=== PATIENT | male | born 1935 | race Caucasian/White ===

== ENCOUNTER 2016-11-08 09:50 | Inpatient (IN) | payer OTHER, MEDICARE ==
[~2016-11-08] VITALS: Ht 185.4 cm; Wt 98.3 kg
[~2016-11-08 09:50] MED LIST: CILO50TA PO; FOSI20TA PO; OMEP20TA PO; VITA100021 SL; VITA100064 PO; ZOCO20TA PO
[2016-11-08 09:54] VITALS: BP 158/90; PULSE 76; RESP 18; TEMP 98.1; O2SAT 97
[2016-11-08] MEDS ORDERED: SODIUM CHLORIDE 0.9% FLUSH 10 ML FLUSH IVF PRN (10:15)
--- NOTE | 2016-11-08 10:25 | PD ---
HPI Chief Complaint: Neuro Symptoms/ Deficits Time Seen by Provider: 10:01 Travel History International Travel<30 days: No Contact w/Intl Traveler<30days: No Traveled to known affect area: No History of Present Illness HPI This is an 81-year-old male with history of previous subdural hematoma, less than one year ago, who presents today with complaints of right upper extremity weakness since 2 to 2:30 this morning. The patient states he got up at 2 or 2: 30 and noticed that his right arm he couldn't move. He states everything else worked and he went back to bed. He states when he woke up this morning to use the bathroom and get washed up, he noticed weakness in his right lower extremity. At that time that he called 911. The patient denies any headache. The patient denies any left upper left lower extremity weakness. The patient denies any blurry vision or dizziness. He denies any change in his speech. He is originally from [place] and has an accident however he states his speech is normal. There are no other complaints at the time of my examination. PFSH Past Medical History Cardiovascular Problems: Yes High Cholesterol: Yes Cerebrovascular Accident: Yes Coronary Artery Disease: Yes Diminished Hearing: No Hypertension: Yes Social History Alcohol Use: Yes Tobacco Use: Yes Substance Use: No Allergies-Medications (Allergen,Severity, Reaction): Coded Allergies: No Known Allergies (Verified , 06/19/16) Reported Meds & Prescriptions Reported Meds & Active Scripts Active Reported Flonase Nasal [place] (Fluticasone Nasal [place]) 50 Mcg/Act [place] 1 [place] EACH NARE HS Gabapentin 300 Mg Cap 300 Mg PO HS Fosinopril-Hydrochlorothiazide 10-12.5 Mg Tab 1 Tab PO DAILY Vitamin D (Cholecalciferol) 1,000 Unit Tab 1,000 Units PO DAILY Vitamin B-12 (Cyanocobalamin) 1,000 Mcg Subl 1,000 Mcg SL DAILY Zocor (Simvastatin) 20 Mg Tab 20 Mg PO HS Cilostazol 50 Mg Tab 50 Mg PO BID Omeprazole 20 Mg Tab 20 Mg PO DAILY Review of Systems Except as stated in HPI: all other systems reviewed are Neg General / Constitutional: No: Fever, Chills HENT: No: Headaches, Vertigo, Lightheadedness Cardiovascular: No: Chest Pain or Discomfort, Palpitations Respiratory: No: Cough, Shortness of Breath Gastrointestinal: No: Nausea, Vomiting, Abdominal Pain Genitourinary: No: Frequency, Dysuria Musculoskeletal: Positive: Weakness (right upper extremity weakness lasts flaccidity. He is to right lower extremity however able to move.) Neurologic: Positive: Weakness (right upper extremity flaccidity and weakness. Right lower extremity weakness however able to move.), Focal Abnormalities ( right upper extremity), No: Incontinence, Sensory Disturbance Physical Exam Narrative GENERAL: [-] SKIN: Focused skin assessment warm/dry. HEAD: Atraumatic. Normocephalic. EYES: Pupils equal and round. No scleral icterus. No injection or drainage. ENT: No nasal bleeding or discharge. Mucous membranes pink and moist. NECK: Trachea midline. No JVD. CARDIOVASCULAR: Regular rate and rhythm. No murmur appreciated. RESPIRATORY: No accessory muscle use. Clear to auscultation. Breath sounds equal bilaterally. GASTROINTESTINAL: Abdomen soft, non-tender, nondistended. Hepatic and splenic margins not palpable. MUSCULOSKELETAL: No obvious deformities. No clubbing. No cyanosis. No edema. NEUROLOGICAL: Awake and alert. No obvious cranial nerve deficits. Motor grossly within normal limits. Normal speech. PSYCHIATRIC: Appropriate mood and affect; insight and judgment normal. Data Data Last Documented VS Vital Signs Date Time Temp Pulse Resp B/P Pulse Ox O2 Delivery O2 Flow Rate FiO2 11/08/16 09:59 75 18 96 Room Air 11/08/16 09:54 98.1 158/90 Orders Electrocardiogram (11/08/16 ) Prothrombin Time / Inr (Pt) (11/08/16 10:11) Act Partial Throm Time (Ptt) (11/08/16 10:11) Complete Blood Count With Diff (11/08/16 10:11) Comprehensive Metabolic Panel (11/08/16 10:11) Urinalysis - C+S If Indicated (11/08/16 10:11) Ct Brain W/O Iv Contrast(Rout) (11/08/16 10:11) Cta Brain W Iv Contrast W 3d (11/08/16 10:11) Chest, Single Ap (11/08/16 10:11) Ecg Monitoring (11/08/16 10:11) Iv Access Insert/Monitor (11/08/16 10:11) Oximetry (11/08/16 10:11) Sodium Chloride 0.9% Flush (Ns Flush) (11/08/16 10:15) Cta Neck W Iv Contrast W 3d (11/08/16 ) Iohexol 350 Inj (Omnipaque 350 Inj) (11/08/16 12:32) Sodium Chlor 0.9% 1000 Ml Inj (Ns 1000 M (11/08/16 13:00) Consult Neurology (11/08/16 ) Admit Order (Ed Use Only) (11/08/16 13:37) Labs Laboratory Tests Test 11/08/16 11/08/16 10:30 12:15 White Blood Count 7.2 TH/MM3 Red Blood Count 4.53 MIL/MM3 Hemoglobin 13.4 GM/DL Hematocrit 38.8 % Mean Corpuscular Volume 85.6 FL Mean Corpuscular Hemoglobin 29.6 PG Mean Corpuscular Hemoglobin 34.6 % Concent Red Cell Distribution Width 14.4 % Platelet Count 195 TH/MM3 Mean Platelet Volume 8.4 FL Neutrophils (%) (Auto) 67.2 % Lymphocytes (%) (Auto) 22.3 % Monocytes (%) (Auto) 6.4 % Eosinophils (%) (Auto) 3.1 % Basophils (%) (Auto) 1.0 % Neutrophils # (Auto) 4.9 TH/MM3 Lymphocytes # (Auto) 1.6 TH/MM3 Monocytes # (Auto) 0.5 TH/MM3 Eosinophils # (Auto) 0.2 TH/MM3 Basophils # (Auto) 0.1 TH/MM3 CBC Comment AUTO DIFF Differential Comment AUTO DIFF CONFIRMED Platelet Estimate NORMAL Platelet Morphology Comment NORMAL Prothrombin Time 11.3 SEC Prothromb Time International 1.0 RATIO Ratio Activated Partial 28.4 SEC Thromboplast Time Sodium Level 141 MEQ/L Potassium Level 4.0 MEQ/L Chloride Level 107 MEQ/L Carbon Dioxide Level 26.2 MEQ/L Anion Gap 8 MEQ/L Blood Urea Nitrogen 21 MG/DL Creatinine 1.32 MG/DL Estimat Glomerular Filtration 52 ML/MIN Rate Random Glucose 118 MG/DL Calcium Level 8.8 MG/DL Total Bilirubin 0.3 MG/DL Aspartate Amino Transf 11 U/L (AST/SGOT) Alanine Aminotransferase 17 U/L (ALT/SGPT) Alkaline Phosphatase 76 U/L Total Protein 6.8 GM/DL Albumin 3.5 GM/DL Hemoglobin A1c 5.6 % Urine Color YELLOW Urine Turbidity CLEAR Urine pH 6.0 Urine Specific [place] 1.017 Urine Protein TRACE mg/dL Urine Glucose (UA) NEG mg/dL Urine Ketones NEG mg/dL Urine Occult Blood NEG Urine Nitrite NEG Urine Bilirubin NEG Urine Urobilinogen LESS THAN 2.0 MG/DL Urine Leukocyte Esterase NEG Urine RBC 1 /hpf Urine WBC LESS THAN 1 /hpf Urine Squamous Epithelial <1 /hpf Cells Urine Mucus FEW /lpf Microscopic Urinalysis Comment CULT NOT INDICATED MDM Medical Decision Making Medical Screen Exam Complete: Yes Emergency Medical Condition: Yes Differential Diagnosis Hemorrhagic CVA versus embolic CVA versus metabolic derangement Narrative Course 81-year-old gentleman who woke up this morning at 2:30 AM with right arm flaccidity. Patient went back to bed and woke up with weakness in his right leg as well. The patient presents via EMS. He is out of the [facility] window. Initial CT of the brain shows no evidence of acute findings other than old bur hole from his previous subdural hematoma last March. His BUN and creatinine are elevated with creatinine at 1.32 he'll be admitted to the hospital have a neurology consult. Physician Communication Physician Communication Call out to [facility] physician at 12:40 PM. Repeat call out to [facility] physician at 1303 p.m. Diagnosis Primary Impression: CVA (cerebral vascular accident) Additional Impression: Renal insufficiency Charli Vicente MD Nov 08, 2016 10:25
--- NOTE | 2016-11-08 10:40 | RADRPT ---
EXAM DATE/TIME: 11/08/2016 10:17 [facility] COMPARISON: CHEST SINGLE AP, July 23, 2015, 5:02. INDICATIONS : Awoke last night and was unable to move his right arm and right leg, short of breath MEDICAL HISTORY : Hypertension. SURGICAL HISTORY : None. ENCOUNTER: Initial ACUITY: 1 day PAIN SCORE: 0/10 LOCATION: Bilateral abdomen FINDINGS: The heart is mildly enlarged. The lungs are clear. The visualized bony structures are grossly intact. CONCLUSION: 1. Cardiomegaly. Stable compared to previous exam. William Williamson MD on November 08, 2016 at 10:37 Board Certified Radiologist. This report was verified electronically.
[2016-11-08 10:59] LABS: AUTOMATED NEUTROPHIL # 4.9 TH/MM3 (1.8-7.7); BASOPHIL # 0.1 TH/MM3 (0-0.2); EOSINOPHIL # 0.2 TH/MM3 (0-0.4); EOSINOPHIL % 3.1 % (0.0-4.0); HEMATOCRIT 38.8 % (39.0-51.0); LYMPH % 22.3 % (9.0-44.0); LYMPHOCYTE # 1.6 TH/MM3 (1.0-4.8); MEAN CELL VOLUME 85.6 FL (80.0-100.0); MEAN CORPUSCULAR HEMOGLOBIN 29.6 PG (27.0-34.0); MEAN CORPUSCULAR HGB CONC 34.6 % (32.0-36.0); MONO % 6.4 % (0.0-8.0); NEUT % 67.2 % (16.0-70.0); PLATELET COUNT 195 TH/MM3 (150-450); RED BLOOD COUNT 4.53 MIL/MM3 (4.50-5.90); RED CELL DISTRIBUTION WIDTH 14.4 % (11.6-17.2); WHITE BLOOD COUNT 7.2 TH/MM3 (4.0-11.0)
[2016-11-08 11:01] LABS: HEMO FLAGS AUTO DIFF
[2016-11-08 11:13] LABS: APTT (PATIENT) 28.4 SEC (24.3-30.1); PROTHROMBIN TIME - PATIENT 11.3 SEC (9.8-11.6)
[2016-11-08 11:32] LABS: ALKALINE PHOSPHATASE 76 U/L (45-117); ALT (GPT) 17 U/L (12-78); ANION GAP 8 MEQ/L (5-15); AST (GOT) 11 U/L (15-37); BICARBONATE 26.2 MEQ/L (21.0-32.0); BLOOD UREA NITROGEN 21 MG/DL (7-18); CHLORIDE 107 MEQ/L (98-107); GLOMERULAR FILTRATION RATE 52 ML/MIN (>89); PLATELET ESTIMATE SMEAR NORMAL (NORMAL); PLATELET MORPHOLOGY NORMAL (NORMAL); SCAN/DIFF AUTO DIFF CONFIRMED; SODIUM (NA) 141 MEQ/L (136-145); TOTAL BILIRUBIN ADULT 0.3 MG/DL (0.2-1.0)
--- NOTE | 2016-11-08 12:22 | RADRPT ---
EXAM DATE/TIME: 11/08/2016 11:54 [facility] COMPARISON: CT ABDOMEN & PELVIS W CONTRAST, July 23, 2015, 5:36. INDICATIONS : Right sided weakness. History of brain bleed in March. RADIATION DOSE: 56.35 CTDIvol (mGy) MEDICAL HISTORY : Cerebrovascular disease. Hypertension. SURGICAL HISTORY : Brain surgery. ENCOUNTER: Initial ACUITY: 1 day PAIN SCALE: 0/10 LOCATION: cranial TECHNIQUE: Multiple contiguous axial images were obtained of the head. Using automated exposure control and adj ustment of the mA and/or kV according to patient size, radiation dose was kept as low as reasonably a chievable to obtain optimal diagnostic quality images. FINDINGS: CEREBRUM: The ventricles are normal for age. No evidence of midline shift, mass lesion, hemorrhage or acute in farction. No extra-axial fluid collections are seen. POSTERIOR FOSSA: The cerebellum and brainstem are intact. The 4th ventricle is midline. The cerebellopontine angle i s unremarkable. EXTRACRANIAL: The visualized portion of the orbits is intact. SKULL: The exam demonstrates a small defect in the left interparietal skull consistent with an old loco hole . No acute fractures seen. CONCLUSION: 1. 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 No acute intracranial abnormality identified. William Williamson MD on November 08, 2016 at 12:18 Board Certified Radiologist. This report was verified electronically.
[2016-11-08] MEDS ORDERED: IOHEXOL 350 MG/ML 10 ML VIAL (for RAD DIAG) IV ONE (12:32)
[2016-11-08 12:53] LABS: BLOOD, URINE NEG (NEG); COMMENT (UR) CULT NOT INDICATED; CULTURE IF INDICATED CULT NOT INDICATED; GLUCOSE,URINE NEG (NEG); KETONE, URINE NEG (NEG); MUCUS URINE FEW /lpf (OCC); NITRITE,URINE NEG (NEG); SQUAMOUS EPITHELIAL CELL URINE <1 /hpf (0-5); URINE COLOR YELLOW (YELLW/STRAW)
--- NOTE | 2016-11-08 13:18 | RADRPT ---
EXAM DATE/TIME: 11/08/2016 11:54 [facility] COMPARISON: No previous studies available for comparison. INDICATIONS : Right side weakness. IV CONTRAST: 25 cc Omnipaque 350 (iohexol) IV ; Cumulative dose for multiple exams. RADIATION DOSE: 34.36 CTDIvol (mGy) ; Combined studies MEDICAL HISTORY : Cerebrovascular disease. Hypertension. SURGICAL HISTORY : None. ENCOUNTER: Initial ACUITY: 1 day PAIN SCALE: 0/10 LOCATION: cranial TECHNIQUE: Volumetric scanning was performed using a multi-row detector CT scanner. The data was post processed with a variety of visualization algorithms including full volume maximum intensity projection, multi -planar sliding thin slab reformation, curved planar reformation, and surface rendering techniques. Using automated exposure control and adjustment of the mA and/or kV according to patient size, radiat ion dose was kept as low as reasonably achievable to obtain optimal diagnostic quality images. FINDINGS: There is excellent visualization of the major intracranial arteries out to the second-order branch ve ssels. There is no evidence for aneurysm, vessel truncation or stenosis, and no evidence for vascula r malformation. CONCLUSION: No acute [place] vascular abnormalities Avery Stevens MD on November 08, 2016 at 13:07 Board Certified Radiologist. This report was verified electronically.
--- NOTE | 2016-11-08 13:20 | RADRPT ---
EXAM DATE/TIME: 11/08/2016 12:01 [facility] COMPARISON: No previous studies available for comparison. INDICATIONS : Right side weakness. IV CONTRAST: 25 cc Omnipaque 350 (iohexol) IV ; Cumulative dose for multiple exams. RADIATION DOSE: 34.36 CTDIvol (mGy) ; Combined studies MEDICAL HISTORY : Cerebrovascular disease. Hypertension. SURGICAL HISTORY : None. ENCOUNTER: Initial ACUITY: 1 day PAIN SCALE: 0/10 LOCATION: neck Elevated flow velocities and ICA/CCA ratios have been found to correlate with increased degrees of vessel stenosis, calculated as percentage of diameter relative to a normal segment of distal ICA/CCA. TECHNIQUE: Volumetric scanning was performed using a multirow detector CT scanner. The data was post processed with a variety of visualization algorithms including full-volume maximum intensity projection, multip lanar sliding thin-slab reformation, curved-planar reformation, and surface-rendering techniques. Us ing automated exposure control and adjustment of the mA and/or kV according to patient size, radiatio n dose was kept as low as reasonably achievable to obtain optimal diagnostic quality images. FINDINGS: AORTIC ARCH: Truncus arch anatomy. Widely patent arch vessels. RIGHT CAROTID: The common carotid artery is intact. The carotid bulb has a normal configuration without ulceration o r narrowing. The internal carotid artery lumen is smooth without stenosis. The external carotid kecia ry is intact. LEFT CAROTID: The common carotid artery is intact. The carotid bulb has a normal configuration without ulceration or narrowing. The internal carotid artery lumen is smooth without stenosis. The external carotid ar dawn is intact. VERTEBRALS: The vertebral arteries are patent bilaterally, left side dominant. CONCLUSION: No evidence of carotid stenosis Avery Stevens MD on November 08, 2016 at 13:16 Board Certified Radiologist. This report was verified electronically.
[2016-11-08] MEDS: SODIUM CHLOR 0.9% 1000 ML INJ 1,000 ML IV SCH ×2 (13:27→20:59)
[2016-11-08] MEDS ORDERED: FOSI10TA PO (14:16)
[2016-11-08] MEDS ORDERED: FLUT1SPR5 EACH NARE (14:16)
[2016-11-08] MEDS ORDERED: GABA300C5 PO (14:16)
--- NOTE | 2016-11-08 14:29 | HHI.HP ---
[facility] Brie Han Do, MD Admission Diagnosis CVA, renal insufficiency Diagnoses: Chief Complaint: Right upper and lower extremity weakness and numbness Travel History International Travel<30 Days: No Contact w/Intl Traveler <30 Da: No Traveled to Known Affected Are: No History of Present Illness This is a pleasant 81-year-old male past medical history of hypertension and history of subdural hematoma secondary to a fall status post loco hole presented with right-sided arm and leg weakness and numbness. Patient stated last night he had abruptly developed right-sided weakness and numbness. He said he went to sleep hoping it would go away and woke up with right lower extremity numbness and weakness. Patient stated that at the moment his right lower extremity strength and numbness is improving but continues to have upper extremity weakness and numbness. Patient denies any history of CVA but stated that prior he was on aspirin until he fell down the stairs in March 2016 and was found to have a subdural hematoma with a loco hole placement. Patient stated that after that he was told not to restart aspirin. He denies any new focal neurological deficit at the moment. Patient denies any headache, visual changes, nausea vomiting, palpitations, lightheadedness or dizziness, or any abnormal sensations from the heart. Patient's son is at the bedside and stated that patient seems to have been losing his short-term memory over years but it is mild. He said that he thinks his father has mild dementia. Patient also complains about having chronic toe itchiness in which his PCP recently placed him on gabapentin. He stated that he is not sure if the medication is working and wants some relief from this. critical care technician at the bedside during the interview. Review of Systems Constitutional: DENIES: Diaphoretic episodes, Fatigue, Fever, Weight gain, Weight loss, Chills, Dizziness, Change in appetite, Night Sweats Endocrine: DENIES: Heat/cold intolerance, Polydipsia, Polyuria, Polyphagia Eyes: DENIES: Blurred vision, Diplopia, Eye inflammation, Eye pain, Vision loss , Photosensitivity, Double Vision Ears, nose, mouth, throat: DENIES: Tinnitus, Hearing loss, Vertigo, Nasal discharge, Oral lesions, Throat pain, Hoarseness, Ear Pain, Running Nose, Epistaxis, Sinus Pain, Toothache, Odynophagia Respiratory: DENIES: Apneas, Cough, Snoring, Wheezing, Hemoptysis, Sputum production, Shortness of breath Cardiovascular: DENIES: Chest pain, Palpitations, Syncope, Dyspnea on Exertion , PND, Lower Extremity Edema, Orthopnea, Claudication Gastrointestinal: DENIES: Abdominal pain, Black stools, Bloody stools, Constipation, Diarrhea, Nausea, Vomiting, Difficulty Swallowing, Anorexia Genitourinary: DENIES: Sexual dysfunction, Urinary frequency, Urinary incontinence, Urgency, Hematuria, Dysuria, Nocturia, Penile Discharge, Testicular Pain, Testicular Swelling Musculoskeletal: DENIES: Joint pain, Muscle aches, Stiffness, Joint Swelling, Back pain, Neck pain Integumentary: DENIES: Abnormal pigmentation, Nail changes, Pruritus, Rash Hematologic/lymphatic: DENIES: Bruising, Lymphadenopathy Immunologic/allergic: COMPLAINS OF: Urticaria, DENIES: Eczema Neurologic: COMPLAINS OF: Localized weakness, Paresthesias, DENIES: Abnormal gait, Headache, Seizures, Speech Problems, Tremor, Poor Balance Psychiatric: DENIES: Anxiety, Confusion, Mood changes, Depression, Hallucinations, Agitation, Suicidal Ideation, Homicidal Ideation, Delusions Past Family Social History Past Medical History Hyperlipidemia Hypertension History 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 Questionable mild dementia Past Surgical History Loco hole placement in March 2016 Reported Medications Reported Meds & Active Scripts Active Reported Flonase Nasal [place] (Fluticasone Nasal [place]) 50 Mcg/Act [place] 1 [place] EACH NARE HS Gabapentin 300 Mg Cap 300 Mg PO HS Fosinopril-Hydrochlorothiazide 10-12.5 Mg Tab 1 Tab PO DAILY Vitamin D (Cholecalciferol) 1,000 Unit Tab 1,000 Units PO DAILY Vitamin B-12 (Cyanocobalamin) 1,000 Mcg Subl 1,000 Mcg SL DAILY Zocor (Simvastatin) 20 Mg Tab 20 Mg PO HS Cilostazol 50 Mg Tab 50 Mg PO BID Omeprazole 20 Mg Tab 20 Mg PO DAILY Allergies: Coded Allergies: No Known Allergies (Verified , 06/19/16) Active Ordered Medications Current Medications Sodium Chloride (NS Flush) 2 ml UNSCH PRN IVF FLUSH AFTER USING IV ACCESS; Start 11/08/16 at 10:15; Stop 11/08/16 at 14:31; Status DC Iohexol 25 ml 25 ml STK-MED ONCE IV Last administered on 11/08/16 13:49; Start 11/08/16 at 12:32; Stop 11/08/16 at 12:33; Status DC Sodium Chloride (NS 1000 ml Inj) 1,000 ml @ 100 mls/hr Q10H IV Last administered on 11/08/16 13:27; Start 11/08/16 at 13:00 Aspirin (Ecotrin Ec) 325 mg DAILY PO Last administered on 11/08/16 14:54; Start 11/08/16 at 15:00 Sodium Chloride (NS Flush) 2 ml BID IV FLUSH ; Start 11/08/16 at 21:00 Sodium Chloride (NS Flush) 2 ml UNSCH PRN IV FLUSH FLUSH AFTER USING IV ACCESS ; Start 11/08/16 at 14:30 Insulin Aspart (NovoLOG SUPPLEMENTAL SCALE) 1 ACHS SLIDING SCALE SQ ; Start 11/08/16 at 16:00 Dextrose (D50w (Vial) Inj) 25 ml UNSCH PRN IV PUSH HYPOGLYCEMIA-SEE COMMENTS; Start 11/08/16 at 14:30 Glucagon (Glucagon Inj) 1 mg UNSCH PRN IM/SQ HYPOGLYCEMIA-SEE COMMENTS; Start 11/08/16 at 14:30 Enoxaparin Sodium (Lovenox Inj) 40 mg Q24H SQ Last administered on 11/08/16 14: 54; Start 11/08/16 at 15:00 Betamethasone/ Clotrimazole (Lotrisone Cream) 1 applic Q12HR TOPICAL ; Start 11/08/16 at 15:00 Family History Patient stated brother has a history of diabetes otherwise family members are relatively healthy. Social History Denying tobacco or illicit drug use. Drinks a couple beers every week. Physical Exam Vital Signs Vital Signs Date Time Temp Pulse Resp B/P Pulse Ox O2 Delivery O2 Flow Rate FiO2 11/08/16 09:59 75 18 96 Room Air 11/08/16 09:54 98.1 76 18 158/90 97 Physical Exam GENERAL: This is a well-nourished, well-developed patient, in no apparent distress. SKIN: No rashes, ecchymoses or lesions. Cool and dry. HEAD: Atraumatic. Normocephalic. No temporal or scalp tenderness. EYES: Pupils equal round and reactive. Extraocular motions intact. No scleral icterus. No injection or drainage. ENT: Nose without bleeding, purulent drainage or septal hematoma. Throat without erythema, tonsillar hypertrophy or exudate. Uvula midline. Airway patent. NECK: Trachea midline. No JVD or lymphadenopathy. Supple, nontender, no meningeal signs. CARDIOVASCULAR: Regular rate and rhythm without murmurs, gallops, or rubs. RESPIRATORY: Clear to auscultation. Breath sounds equal bilaterally. No wheezes , rales, or rhonchi. GASTROINTESTINAL: Abdomen soft, non-tender, nondistended. No hepato-splenomegaly , or palpable masses. No guarding. MUSCULOSKELETAL: Right upper extremity and 0 out of 5 strength. Numbness to light touch. Right lower extremity 3 out of 5 strength. Mild numbness to light touch. Left sided upper and lower extremity 5 out of 5 strength. Sensation is intact. NEUROLOGICAL: Awake and alert AAO X3. Cranial nerves II through XII intact. Normal speech. Coordination is intact. Laboratory Laboratory Tests Test 11/08/16 11/08/16 10:30 12:15 White Blood Count 7.2 Red Blood Count 4.53 Hemoglobin 13.4 Hematocrit 38.8 Mean Corpuscular Volume 85.6 Mean Corpuscular Hemoglobin 29.6 Mean Corpuscular Hemoglobin 34.6 Concent Red Cell Distribution Width 14.4 Platelet Count 195 Mean Platelet Volume 8.4 Neutrophils (%) (Auto) 67.2 Lymphocytes (%) (Auto) 22.3 Monocytes (%) (Auto) 6.4 Eosinophils (%) (Auto) 3.1 Basophils (%) (Auto) 1.0 Neutrophils # (Auto) 4.9 Lymphocytes # (Auto) 1.6 Monocytes # (Auto) 0.5 Eosinophils # (Auto) 0.2 Basophils # (Auto) 0.1 CBC Comment AUTO DIFF Differential Comment AUTO DIFF CONFIRMED Platelet Estimate NORMAL Platelet Morphology Comment NORMAL Prothrombin Time 11.3 Prothromb Time International 1.0 Ratio Activated Partial 28.4 Thromboplast Time Sodium Level 141 Potassium Level 4.0 Chloride Level 107 Carbon Dioxide Level 26.2 Anion Gap 8 Blood Urea Nitrogen 21 Creatinine 1.32 Estimat Glomerular Filtration 52 Rate Random Glucose 118 Calcium Level 8.8 Total Bilirubin 0.3 Aspartate Amino Transf 11 (AST/SGOT) Alanine Aminotransferase 17 (ALT/SGPT) Alkaline Phosphatase 76 Total Protein 6.8 Albumin 3.5 Urine Color YELLOW Urine Turbidity CLEAR Urine pH 6.0 Urine Specific [place] 1.017 Urine Protein TRACE Urine Glucose (UA) NEG Urine Ketones NEG Urine Occult Blood NEG Urine Nitrite NEG Urine Bilirubin NEG Urine Urobilinogen LESS THAN 2.0 Urine Leukocyte Esterase NEG Urine RBC 1 Urine WBC LESS THAN 1 Urine Squamous Epithelial <1 Cells Urine Mucus FEW Microscopic Urinalysis Comment CULT NOT INDICATED Result Diagram: 11/08/16 1030 11/08/16 1030 Imaging Last Impressions Head CTA 11/08/16 1011 Signed Impressions: Service Date/Time: Tuesday, November 08, 2016 11:54 - CONCLUSION: No acute [place] vascular abnormalities Avery Stevens MD Head CT 11/08/16 1011 Signed Impressions: Service Date/Time: Tuesday, November 08, 2016 11:54 - CONCLUSION: 1. 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 No acute intracranial abnormality identified. William Williamson MD Chest X-Ray 11/08/16 1011 Signed Impressions: Service Date/Time: Tuesday, November 08, 2016 10:17 - CONCLUSION: 1. Cardiomegaly. Stable compared to previous exam. William Williamson MD Neck CTA 11/08/16 0000 Signed Impressions: Service Date/Time: Tuesday, November 08, 2016 12:01 - CONCLUSION: No evidence of carotid stenosis Avery Stevens MD Assessment and Plan Assessment and Plan Right-sided arm and leg weakness or paresthesia -Concerning for CVA. -Symptoms are improving so not a candidate for TPA and patient is also out of the window for TPA treatment. -CT scan of the head showed no intracranial bleed. Will give aspirin. -CTA of head and neck are negative. -We will follow CVA protocol. Consult neurologist. -Allow permissive hypertension until CVA ruled out. -MRI already ordered in the ED pending results. Will get an echo. -PT/OT/ST consult. Neuro checks. -Patient's already on a statin but will check LDL and hemoglobin A1c. Continue with home dose of statin. -Residential Green Building Designer already consulted in the ED. Hypertension -Allow permissive hypertension until CVA ruled out. Otherwise it CVA will allow permissive hypertension for 24-48 hours. Hyperlipidemia -Continue with statin. Will get LDL. Urticaria the right toes -We will hold gabapentin because treatment is not indicated for this. -will try betamethasone/clotrimazole cream. -Will follow clinically. DVT prophylaxis -Start Lovenox Code Status Full code Discussed Condition With Patient and his son. Physician Certification 2 Midnight Certification Type: Admission for Inpatient Services Order for Inpatient Services The services are ordered in accordance with Medicare regulations or non- Medicare payer requirements, as applicable. In the case of services not specified as inpatient-only, they are appropriately provided as inpatient services in accordance with the 2-midnight benchmark. Estimated LOS (days): 3 3 days is the estimated time the patient will need to remain in the hospital, assuming treatment plan goals are met and no additional complications. Post-Hospital Plan: Home Health Angela Walton MD Nov 08, 2016 14:29
[2016-11-08] MEDS ORDERED: GLUCAGON 1 MG/ML VIAL IM/SQ PRN (14:30)
[2016-11-08] MEDS ORDERED: SODIUM CHLORIDE 0.9% FLUSH 10 ML FLUSH IV FLUSH PRN (14:30)
[2016-11-08] MEDS ORDERED: DEXTROSE 50% IN WATER 50 ML VIAL(D50) IV PUSH PRN (14:30)
[2016-11-08] MEDS: ASPIRIN EC 325 MG TABEC PO SCH (14:54)
[2016-11-08] MEDS: ENOXAPARIN SODIUM 40 MG/0.4 ML SYRINGE SQ SCH (14:54)
[2016-11-08] MEDS: BETAMETHASONE/CLOTRIMAZOLE CREAM 15 GM TOPICAL SCH ×2 (15:00→20:58)
--- NOTE | 2016-11-08 15:46 | RADRPT ---
EXAM DATE/TIME: 11/08/2016 15:11 [facility] COMPARISON: No previous studies available for comparison. INDICATIONS : Right sided weakness. MEDICAL HISTORY : Hypertension. SURGICAL HISTORY : Umbilical hernia repair. Blood clot removal from brain 03/16/16 ENCOUNTER: Initial ACUITY: 1 day PAIN SCORE: 0/10 LOCATION: cranial TECHNIQUE: Multiplanar, multisequence MRI of the brain was performed without contrast. FINDINGS: The diffusion imaging demonstrates a smaller abnormal signal in the high left parietal cortex. This w ould be consistent with a small area of acute cortical infarct. No other areas of acute stroke are id entified. The exam does demonstrate an old, lacunar infarct in the right caudate nucleus. There are scattered a reas of increased T2 signal throughout the white matter consistent with moderate microvascular ischem ic demyelinative change. No mass lesion is identified. No significant extra-axial fluid collections a re present. Sagittal T1 weighted images demonstrate normal formation of the corpus callosum and midline structure s. The cerebellar tonsils are in their appropriate location. The sinuses are clear. The orbits are intact. CONCLUSION: 1. Small area of acute cortical infarct in the high left parietal cortices. 2. 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 William Williamson MD on November 08, 2016 at 15:42 Board Certified Radiologist. This report was verified electronically.
--- NOTE | 2016-11-08 15:47 | RADRPT ---
EXAM DATE/TIME: 11/08/2016 15:11 [facility] COMPARISON: No previous studies available for comparison. INDICATIONS : Right sided weakness. MEDICAL HISTORY : Hypertension. SURGICAL HISTORY : Umbilical hernia repair. Blood removed from brain 03/16/16 ENCOUNTER: Initial ACUITY: 1 day PAIN SCORE: 0/10 LOCATION: cranial Please note a normal MRA of the brain does not entirely exclude the possibility of a small aneurysm, nor the possibility of distal intracranial vessel disease. TECHNIQUE: 3D time of flight MRA was performed. Source images, multiplanar STS MIP, and 3D volume MIP reconstru ctions were reviewed. FINDINGS: The distal internal carotid arteries are patent. The basilar artery is patent. No large or central ve ssel occlusion is identified. The anterior, middle and posterior cerebral circulation is unremarkable in appearance by MRA. CONCLUSION: 1. No large or central vessel occlusion identified. 2. Patient has known acute cortical infarct on the MRI images on the left. William Williamson MD on November 08, 2016 at 15:45 Board Certified Radiologist. This report was verified electronically.
[2016-11-08] MEDS: INSULIN ASPART SUPPLEMENTAL SCALE SQ SCH ×2 (15:51→20:54)
[2016-11-08 15:58] VITALS: BP 170/77; PULSE 65; RESP 18; TEMP 97.8; O2SAT 97
[2016-11-08 17:00] VITALS: BP 152/76; PULSE 66; RESP 20; TEMP 96.9; O2SAT 100
--- NOTE | 2016-11-08 17:11 | OTSOAPIP ---
TIME SESSION COMPLETED: PM TREATMENT TIME: 0 MINS. CHART REVIEWED. ATTEMPTED TO SEE FOR OT EVALUATION, HOWEVER PT UNAVAILABLE AND NOT IN ROOM. Therapist: CASEY ALVAREZ OT/L Signature on file
[2016-11-08 20:00] VITALS: BP 157/88; PULSE 66; RESP 20; TEMP 97.7; O2SAT 95
[2016-11-08] MEDS: PRAVASTATIN SOD 40 MG TAB PO SCH (20:57)
[2016-11-08] MEDS: FLUTICASONE PROPIONATE 50 MCG/ACT 16 GM NASAL SPRAY EACH NARE SCH (20:57)
[2016-11-08] MEDS: CILOSTAZOL 50 MG TAB PO SCH (20:57)
[2016-11-08] MEDS: SODIUM CHLORIDE 0.9% FLUSH 10 ML FLUSH IV FLUSH SCH (20:57)
--- NOTE | 2016-11-08 23:31 | MB ---
cc: ANGUS FAJARDO MD DATE OF CONSULTATION 11/08/16 03/04/1985 REASON FOR CONSULTATION Stroke HISTORY OF PRESENT ILLNESS The patient is a pleasant 81 year old man with a history of hypertension, subdural hematoma left-sided last year status post fall with a bur hole in the left while visiting family in [place]. He presented today. He woke up with right side arm and leg weakness and numbness. His leg is better now. His arm is still weak. No headache, chest pain, shortness of breath. Denies any falls. PAST MEDICAL HISTORY 1. Hyperlipidemia, 2. Hypertension, 3. Subdural hematoma on the left 2015 4. History of bur hole in 2016 MEDICATIONS Reported medicines at home 1. Flonase 2. Gabapentin 3. Lisinopril 4. Hydrochlorothiazide, 5. Vitamin D 6. B12 7. Zocor 8. 9. Omeprazole. ALLERGIES None reported. SOCIAL HISTORY No tobacco, alcohol, a couple of beers every week. No tobacco or illicit drugs. He is . FAMILY HISTORY Diabetes in a brother PHYSICAL EXAMINATION VITAL SIGNS: Temperature is 96.9, pulse 66, respiratory rate 20, blood pressure 152/76. NECK: Supple. HEART: Regular. LUNGS: Clear. NEUROLOGIC: He is awake, alert, oriented and fluent. His pupils are reactive. Visual [place]un[place] full. Face symmetrical. Tongue midline. Motor hilliard - he has some movement in his arm. He can bend at the elbow and lift his shoulder. He is at best a 2/5. He can feel pain and temperature. Leg - He was able to lift antigravity. He is at best a 3+/5 in the leg, but there is a leg lag. Left side is intact. Toes upgoing on the right. DTRs are 1-2+. Sensory otherwise unremarkable. Cerebellar on the left is intact. Gait cannot be assessed at this time. IMAGING STUDIES MRI of the brain shows a small area of acute cortical infarct high left parietal old [place], right basal ganglia. CTA of the [place] - no acute findings. MRA [place] negative. CTA of the carotids - no stenosis. LABORATORY DATA CBC is really unremarkable. Chemistries - BUN 21, creatinine 1.32, GFR 52, glucose 118, hemoglobin A1c is pending. Urine unremarkable. IMPRESSION Left parietal infarct in an 81 year old man with a history hypertension, possible hyperlipidemia. Recommend getting a lipid panel, get a 2-D echo, PT, OT evaluation, Lovenox for DVT prophylaxis. Permissible hypertension. Depending on other test if he is doing better, he will likely need to do either outpatient physical or inpatient physical therapy. I would go ahead and consult rehab medicine for evaluation as well. Continue current care. MD CECE Monahan/ /6:29 PM /11:20 PM
[2016-11-09] VITALS (9 sets, daily range): BP systolic 128–160; BP diastolic 77–98; PULSE 61–88; RESP 18–24; TEMP 97.3–99.1; O2SAT 95–96
[2016-11-09] MEDS: INSULIN ASPART SUPPLEMENTAL SCALE SQ SCH ×4 (06:02→20:22)
[2016-11-09] MEDS: SODIUM CHLORIDE 0.9% FLUSH 10 ML FLUSH IV FLUSH SCH ×2 (08:19→20:22)
[2016-11-09] MEDS: CHOLECALCIFEROL (VIT D3) 1000 UNIT TAB PO SCH (08:19)
[2016-11-09] MEDS: PANTOPRAZOLE SOD 20 MG DELAYED RELEASE TAB PO SCH (08:19)
[2016-11-09] MEDS: CILOSTAZOL 50 MG TAB PO SCH ×2 (08:19→20:22)
[2016-11-09] MEDS: ASPIRIN EC 325 MG TABEC PO SCH (08:19)
[2016-11-09] MEDS: CYANOCOBALAMIN 1,000 MCG TAB PO SCH (08:19)
[2016-11-09] MEDS: SODIUM CHLOR 0.9% 1000 ML INJ 1,000 ML IV SCH ×3 (08:20→18:45)
[2016-11-09] MEDS: BETAMETHASONE/CLOTRIMAZOLE CREAM 15 GM TOPICAL SCH ×2 (08:20→20:23)
--- NOTE | 2016-11-09 12:28 | EC ---
Study Study Date:11/09/2016 STUDY CONCLUSIONS SUMMARY LEFT VENTRICLE: The cavity size was normal. Wall thickness was normal. Systolic function was mildly reduced. The estimated ejection fraction was in the range of 45% to 50%. Wall motion was normal; there were no regional wall motion abnormalities. If LV function is below 40, please consider prescribing an ACEI or ARB or document rationale for non-use. PROCEDURE DATA STUDY STATUS: Elective. Procedure: Transthoracic echocardiography. Image quality was poor. Scanning was performed from the parasternal, apical, and subcostal acoustic windows. Study completion: The patient tolerated the procedure well. Transthoracic echocardiography. M-mode, complete 2D, complete spectral Doppler, and color Doppler. Patient status: Inpatient. CARDIAC ANATOMY LEFT VENTRICLE: The cavity size was normal. Wall thickness was normal. Systolic function was mildly reduced. The estimated ejection fraction was in the range of 45% to 50%. Wall motion was normal; there were no regional wall motion abnormalities. AORTIC VALVE: Trileaflet; normal thickness leaflets. Doppler: Transvalvular velocity was within the normal range. There was no stenosis. No regurgitation. AORTA: Aortic root: The aortic root was normal in size. MITRAL VALVE: Structurally normal valve. Doppler: Transvalvular velocity was within the normal range. There was no evidence for stenosis. No regurgitation. LEFT ATRIUM: The atrium was normal in size. RIGHT VENTRICLE: The cavity size was normal. Wall thickness was normal. PULMONIC VALVE: Doppler: Transvalvular velocity was within the normal range. There was no evidence for stenosis. No regurgitation. TRICUSPID VALVE: Structurally normal valve. Doppler: Transvalvular velocity was within the normal range. No regurgitation. PULMONARY ARTERY: The main pulmonary artery was normal-sized. Systolic pressure was within the normal range. RIGHT ATRIUM: The atrium was normal in size. PERICARDIUM: There was no pericardial effusion. SYSTEMIC VEINS: Inferior vena cava: The vessel was normal in size. Prepared and signed by Kwesi Lee [id number]
[2016-11-09] MEDS ORDERED: hydrOXYzine PAMOATE 25 MG CAP PO PRN (14:00)
[2016-11-09] MEDS: ENOXAPARIN SODIUM 40 MG/0.4 ML SYRINGE SQ SCH (14:04)
--- NOTE | 2016-11-09 14:42 | EKG ---
Date Performed: 11/08/2016 Time Performed: 10:01:57 PTAGE: 81 years EKG: Sinus rhythm Compared to prior tracing no significant change NORMAL ECG PREVIOUS TRACING : 07/23/2015 05.13 DOCTOR: Dalia Suarez Interpretating Date/Time 11/09/2016 14:39:05
--- NOTE | 2016-11-09 15:12 | HHI.PR ---
Subjective Remarks f/u for CVA patient being seen with PT working on patient. He stated strength improving and he is able to move arm some. PT is helping patient move to chair and he needs full assistance. patient stated that the cream did not help his itchiness on his toes. he denied any other focal neurological deficit. his and grand daughter at bedside too. no acute events since he was last seen. Objective Vitals Vital Signs Date Time Temp Pulse Resp B/P Pulse Ox O2 Delivery O2 Flow Rate FiO2 11/09/16 12:00 98.5 69 20 154/79 95 11/09/16 09:53 67 11/09/16 08:00 97.6 72 20 155/82 95 11/09/16 05:06 61 11/09/16 04:00 97.3 69 20 159/80 95 11/09/16 00:00 99.1 69 20 160/98 96 11/08/16 20:00 97.7 66 20 157/88 95 11/08/16 17:00 96.9 66 20 152/76 100 11/08/16 15:58 97.8 65 18 170/77 97 Room Air I/O 11/08/16 11/08/16 11/08/16 11/09/16 11/09/16 11/09/16 07:00 15:00 23:00 07:00 15:00 23:00 Intake Total 240 ml 1001 ml Output Total 700 ml 520 ml Balance -460 ml 481 ml Intake Oral 240 ml 0 ml IV Total 1001 ml Output Urine Total 700 ml 520 ml # Voids 1 # Bowel Movements 0 0 Result Diagram: 11/08/16 1030 11/08/16 1030 Imaging Last Impressions Brain MRI 11/08/16 1347 Signed Impressions: Service Date/Time: Tuesday, November 08, 2016 15:11 - CONCLUSION: 1. Small area of acute cortical infarct in the high left parietal cortices. 2. 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 William Williamson MD Head CTA 11/08/16 1011 Signed Impressions: Service Date/Time: Tuesday, November 08, 2016 11:54 - CONCLUSION: No acute [place] of [place] vascular abnormalities Avery Stevens MD Head CT 11/08/16 1011 Signed Impressions: Service Date/Time: Tuesday, November 08, 2016 11:54 - CONCLUSION: 1. 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 No acute intracranial abnormality identified. William Williamson MD Chest X-Ray 11/08/16 1011 Signed Impressions: Service Date/Time: Tuesday, November 08, 2016 10:17 - CONCLUSION: 1. Cardiomegaly. Stable compared to previous exam. William Williamson MD Neck CTA 11/08/16 0000 Signed Impressions: Service Date/Time: Tuesday, November 08, 2016 12:01 - CONCLUSION: No evidence of carotid stenosis Avery Stevens MD Head Magnetic Resonance Angiography 11/08/16 0000 Signed Impressions: Service Date/Time: Tuesday, November 08, 2016 15:11 - CONCLUSION: 1. No large or central vessel occlusion identified. 2. Patient has known acute cortical infarct on the MRI images on the left. William Williamson MD Objective Remarks GENERAL: This is a well-nourished, well-developed patient, in no apparent distress. SKIN: No rashes, ecchymoses or lesions. Cool and dry. HEAD: Atraumatic. Normocephalic. No temporal or scalp tenderness. EYES: Pupils equal round and reactive. Extraocular motions intact. No scleral icterus. No injection or drainage. ENT: Nose without bleeding, purulent drainage or septal hematoma. Throat without erythema, tonsillar hypertrophy or exudate. Uvula midline. Airway patent. NECK: Trachea midline. No JVD or lymphadenopathy. Supple, nontender, no meningeal signs. CARDIOVASCULAR: Regular rate and rhythm without murmurs, gallops, or rubs. RESPIRATORY: Clear to auscultation. Breath sounds equal bilaterally. No wheezes , rales, or rhonchi. GASTROINTESTINAL: Abdomen soft, non-tender, nondistended. No hepato-splenomegaly , or palpable masses. No guarding. MUSCULOSKELETAL: Right upper extremity and 0 out of 5 strength. Numbness to light touch. Right lower extremity 3 out of 5 strength. Mild numbness to light touch. Left sided upper and lower extremity 5 out of 5 strength. Sensation is intact. NEUROLOGICAL: Awake and alert AAO X3. Cranial nerves II through XII intact. Normal speech. Coordination is intact. Medications and IVs Last Impressions Brain MRI 11/08/16 1347 Signed Impressions: Service Date/Time: Tuesday, November 08, 2016 15:11 - CONCLUSION: 1. Small area of acute cortical infarct in the high left parietal cortices. 2. 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 William Williamson MD Head CTA 11/08/16 1011 Signed Impressions: Service Date/Time: Tuesday, November 08, 2016 11:54 - CONCLUSION: No acute [place] of [place] vascular abnormalities Avery Stevens MD Head CT 11/08/16 1011 Signed Impressions: Service Date/Time: Tuesday, November 08, 2016 11:54 - CONCLUSION: 1. 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 No acute intracranial abnormality identified. William Williamson MD Chest X-Ray 11/08/16 1011 Signed Impressions: Service Date/Time: Tuesday, November 08, 2016 10:17 - CONCLUSION: 1. Cardiomegaly. Stable compared to previous exam. William Williamson MD Neck CTA 11/08/16 0000 Signed Impressions: Service Date/Time: Tuesday, November 08, 2016 12:01 - CONCLUSION: No evidence of carotid stenosis Avery Stevens MD Head Magnetic Resonance Angiography 11/08/16 0000 Signed Impressions: Service Date/Time: Tuesday, November 08, 2016 15:11 - CONCLUSION: 1. No large or central vessel occlusion identified. 2. Patient has known acute cortical infarct on the MRI images on the left. 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 -deficit right-sided arm and leg weakness/ paresthesia that is improving. -not a candidate for TPA since patient was improving and was out of window for TPA treatment. -CT scan of the head showed no intracranial bleed. -CTA of head and neck are negative. -MRI showed CVA. -continue permissive hypertension and consider controlling BP tomorrow. -pending ECHO. -Patient's already on a statin LDL<70. Hemoglobin A1c pending. -continue with ASA and statin. -Neurologist ff. -on telemetry. Hypertension -Allow permissive hypertension. Hyperlipidemia -Continue with statin. LDL at goal. Urticaria the right toes -cream did not work. -try Vistaril. DVT prophylaxis -Start Lovenox Discharge Planning patient needs full assistance so will got to SNF or inpatient rehab. Angela Walton MD Nov 09, 2016 15:12
[2016-11-09] MEDS: PRAVASTATIN SOD 40 MG TAB PO SCH (20:22)
[2016-11-09] MEDS: FLUTICASONE PROPIONATE 50 MCG/ACT 16 GM NASAL SPRAY EACH NARE SCH (20:22)
[2016-11-10] VITALS (8 sets, daily range): BP systolic 138–183; BP diastolic 72–95; PULSE 66–87; RESP 18–20; TEMP 97.4–98.8; O2SAT 94–96
[2016-11-10] MEDS: SODIUM CHLOR 0.9% 1000 ML INJ 1,000 ML IV SCH (05:40)
[2016-11-10] MEDS: INSULIN ASPART SUPPLEMENTAL SCALE SQ SCH ×2 (06:13→10:35)
[2016-11-10] MEDS: CHOLECALCIFEROL (VIT D3) 1000 UNIT TAB PO SCH (08:15)
[2016-11-10] MEDS: ASPIRIN EC 325 MG TABEC PO SCH (08:15)
[2016-11-10] MEDS: CILOSTAZOL 50 MG TAB PO SCH ×2 (08:15→20:49)
[2016-11-10] MEDS: PANTOPRAZOLE SOD 20 MG DELAYED RELEASE TAB PO SCH (08:15)
[2016-11-10] MEDS: CYANOCOBALAMIN 1,000 MCG TAB PO SCH (08:15)
[2016-11-10] MEDS: SODIUM CHLORIDE 0.9% FLUSH 10 ML FLUSH IV FLUSH SCH ×2 (08:15→20:50)
[2016-11-10] MEDS: BETAMETHASONE/CLOTRIMAZOLE CREAM 15 GM TOPICAL SCH ×2 (08:16→20:51)
[2016-11-10] MEDS ORDERED: [UNRECOGNIZED DRUG - OTHER] PO SCH (10:30)
--- NOTE | 2016-11-10 10:31 | HHI.PR ---
Subjective Remarks Follow-up for CVA Patient no complaints. He stated that he feels like his strength is improving. Patient complaining of itchiness of his foot and stated that the Vistaril did not help him. Otherwise no acute events. No acute events on telemetry. Objective Vitals Vital Signs Date Time Temp Pulse Resp B/P Pulse Ox O2 Delivery O2 Flow Rate FiO2 11/10/16 09:22 72 11/10/16 08:02 97.9 66 18 138/86 96 11/10/16 04:00 98.7 69 18 165/87 95 11/10/16 00:00 97.4 71 20 95 11/10/16 00:00 177/87 11/09/16 20:00 98.3 88 24 155/80 96 11/09/16 19:30 73 11/09/16 16:00 98.3 83 18 128/77 95 11/09/16 12:00 98.5 69 20 154/79 95 I/O 11/09/16 11/09/16 11/09/16 11/10/16 11/10/16 11/10/16 07:00 15:00 23:00 07:00 15:00 23:00 Intake Total 1001 ml 420 ml 1200 ml Output Total 520 ml 330 ml 600 ml 700 ml Balance 481 ml 90 ml -600 ml 500 ml Intake Oral 0 ml 420 ml IV Total 1001 ml 1200 ml Output Urine Total 520 ml 330 ml 600 ml 700 ml # Bowel Movements 0 Result Diagram: 11/08/16 1030 11/08/16 1030 Objective Remarks GENERAL: This is a well-nourished, well-developed patient, in no apparent distress. SKIN: No rashes, ecchymoses or lesions. Cool and dry. HEAD: Atraumatic. Normocephalic. No temporal or scalp tenderness. EYES: Pupils equal round and reactive. Extraocular motions intact. No scleral icterus. No injection or drainage. ENT: Nose without bleeding, purulent drainage or septal hematoma. Throat without erythema, tonsillar hypertrophy or exudate. Uvula midline. Airway patent. NECK: Trachea midline. No JVD or lymphadenopathy. Supple, nontender, no meningeal signs. CARDIOVASCULAR: Regular rate and rhythm without murmurs, gallops, or rubs. RESPIRATORY: Clear to auscultation. Breath sounds equal bilaterally. No wheezes , rales, or rhonchi. GASTROINTESTINAL: Abdomen soft, non-tender, nondistended. No hepato-splenomegaly , or palpable masses. No guarding. MUSCULOSKELETAL: Right upper extremity and 3-4 out of 5 strength. Numbness to light touch. Right lower extremity 5 out of 5 strength. Mild numbness to light touch. Left sided upper and lower extremity 5 out of 5 strength. NEUROLOGICAL: Awake and alert AAO X3. Cranial nerves II through XII intact. Normal speech. lack coordination of limbs involved. Medications and IVs Current Medications Sodium Chloride (NS Flush) 2 ml UNSCH PRN IVF FLUSH AFTER USING IV ACCESS; Start 11/08/16 at 10:15; Stop 11/08/16 at 14:31; Status DC Iohexol 25 ml 25 ml STK-MED ONCE IV Last administered on 11/08/16 13:49; Start 11/08/16 at 12:32; Stop 11/08/16 at 12:33; Status DC Sodium Chloride (NS 1000 ml Inj) 1,000 ml @ 100 mls/hr Q10H IV Last administered on 11/10/16 05:40; Start 11/08/16 at 13:00; Stop 11/10/16 at 08:56; Status DC Aspirin (Ecotrin Ec) 325 mg DAILY PO Last administered on 11/10/16 08:15; Start 11/08/16 at 15:00 Sodium Chloride (NS Flush) 2 ml BID IV FLUSH Last administered on 11/09/16 08: 19; Start 11/08/16 at 21:00 Sodium Chloride (NS Flush) 2 ml UNSCH PRN IV FLUSH FLUSH AFTER USING IV ACCESS ; Start 11/08/16 at 14:30 Insulin Aspart (NovoLOG SUPPLEMENTAL SCALE) 1 ACHS SLIDING SCALE SQ ; Start 11/08/16 at 16:00; Stop 11/10/16 at 10:48; Status DC Dextrose (D50w (Vial) Inj) 25 ml UNSCH PRN IV PUSH HYPOGLYCEMIA-SEE COMMENTS; Start 11/08/16 at 14:30; Stop 11/10/16 at 10:48; Status DC Glucagon (Glucagon Inj) 1 mg UNSCH PRN IM/SQ HYPOGLYCEMIA-SEE COMMENTS; Start 11/08/16 at 14:30; Stop 11/10/16 at 10:48; Status DC Enoxaparin Sodium (Lovenox Inj) 40 mg Q24H SQ Last administered on 11/10/16 14: 16; Start 11/08/16 at 15:00 Betamethasone/ Clotrimazole (Lotrisone Cream) 1 applic Q12HR TOPICAL Last administered on 11/10/16 08:16; Start 11/08/16 at 15:00 Cholecalciferol (Vitamin D3) 1,000 units DAILY PO Last administered on 08:15; Start 11/09/16 at 09:00 Cilostazol (Pletal) 50 mg BID PO Last administered on 11/10/16 08:15; Start 11/08/16 at 21:00 Cyanocobalamin (Vitamin B12) 1,000 mcg DAILY PO Last administered on 11/10/16 08:15; Start 11/09/16 at 09:00 Fluticasone Propionate (Flonase Fran Spr) 1 spray HS EACH NARE Last administered on 11/09/16 20:22; Start 11/08/16 at 21:00 Pantoprazole Sodium (Protonix) 20 mg DAILY PO Last administered on 11/10/16 08: 15; Start 11/09/16 at 09:00 Pravastatin Sodium (Pravachol) 40 mg HS PO Last administered on 11/09/16 20:22 ; Start 11/08/16 at 21:00 Hydroxyzine Pamoate (Vistaril) 25 mg Q8H PRN PO ITCHING Last administered on 14:04; Start 11/09/16 at 14:00; Stop 11/10/16 at 10:32; Status DC Non-Formulary Medication 1 tab DAILY PO ; Start 11/10/16 at 10:30; Status UNV Hydroxyzine Pamoate (Vistaril) 50 mg Q8H PRN PO ITCHING; Start 11/10/16 at 14:00 Fluconazole (Diflucan) 150 mg DAILY PO Last administered on 11/10/16 11:15; Start 11/10/16 at 11:00 Loratadine (Claritin) 10 mg DAILY PO Last administered on 11/10/16 11:15; Start 11/10/16 at 11:00 Lisinopril (Prinivil) 10 mg DAILY PO Last administered on 11/10/16 11:15; Start 11/10/16 at 11:00 Hydrochlorothiazide (Microzide) 12.5 mg DAILY PO Last administered on 11/10/16 11:15; Start 11/10/16 at 11:00 A/P Assessment and Plan Acute cortical infarct in the high left parietal cortices -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 -deficit right-sided arm and leg weakness/ paresthesia that is improving. -not a candidate for TPA since patient was improving and was out of window for TPA treatment. -CT scan of the head showed no intracranial bleed. -CTA of head and neck are negative. -MRI showed CVA. -It has been past 48 hours will now control blood pressure. -Echo showed mild systolic dysfunction with EF of 45-50% otherwise is relatively normal. -Patient's already on a statin LDL<70. Hemoglobin A1c pending. -continue with ASA and statin. -Neurologist ff. -on telemetry. Hypertension -Restart home medication. Hyperlipidemia -Continue with statin. LDL at goal. Urticaria the right toes -Most likely due to athlete's foot. -Since creme is not improving will try dose of Diflucan. Continue with the cream. -Increased dose of Vistaril. -Will give Claritin. DVT prophylaxis -Start Lovenox Discharge Planning Most likely patient can be discharged to SNF for inpatient rehabilitation tomorrow. Angela Walton MD Nov 10, 2016 10:31
[2016-11-10] MEDS: FLUCONAZOLE 100 MG TAB PO SCH (11:15)
[2016-11-10] MEDS: LISINOPRIL 10 MG TAB PO SCH (11:15)
[2016-11-10] MEDS: HYDROCHLOROTHIAZIDE 12.5 MG CAP PO SCH (11:15)
[2016-11-10] MEDS: LORATADINE 10 MG TAB PO SCH (11:15)
[2016-11-10 14:01] LABS: HEMOGLOBIN A1a 1.1 %; HEMOGLOBIN A1b 1.6 %; HEMOGLOBIN Ao 86.3 %; HEMOGLOBIN LA1C 1.4 %; HEMOGLOBIN P3 3.6 %
[2016-11-10] MEDS: ENOXAPARIN SODIUM 40 MG/0.4 ML SYRINGE SQ SCH (14:16)
[2016-11-10] MEDS: PRAVASTATIN SOD 40 MG TAB PO SCH (20:49)
[2016-11-10] MEDS: FLUTICASONE PROPIONATE 50 MCG/ACT 16 GM NASAL SPRAY EACH NARE SCH (20:51)
[2016-11-11] VITALS (7 sets, daily range): BP systolic 107–130; BP diastolic 61–75; PULSE 71–85; RESP 18–20; TEMP 96.8–97.7; O2SAT 93–95
[2016-11-11] MEDS: PANTOPRAZOLE SOD 20 MG DELAYED RELEASE TAB PO SCH (08:50)
[2016-11-11] MEDS: FLUCONAZOLE 100 MG TAB PO SCH (08:50)
[2016-11-11] MEDS: CHOLECALCIFEROL (VIT D3) 1000 UNIT TAB PO SCH (08:51)
[2016-11-11] MEDS: CILOSTAZOL 50 MG TAB PO SCH ×2 (08:51→22:15)
[2016-11-11] MEDS: CYANOCOBALAMIN 1,000 MCG TAB PO SCH (08:51)
[2016-11-11] MEDS: HYDROCHLOROTHIAZIDE 12.5 MG CAP PO SCH (08:52)
[2016-11-11] MEDS: LISINOPRIL 10 MG TAB PO SCH (08:52)
[2016-11-11] MEDS: ASPIRIN EC 325 MG TABEC PO SCH (08:52)
[2016-11-11] MEDS: BETAMETHASONE/CLOTRIMAZOLE CREAM 15 GM TOPICAL SCH ×2 (08:53→22:15)
[2016-11-11] MEDS: SODIUM CHLORIDE 0.9% FLUSH 10 ML FLUSH IV FLUSH SCH ×2 (08:53→22:15)
[2016-11-11] MEDS: LORATADINE 10 MG TAB PO SCH (08:53)
[2016-11-11] MEDS ORDERED: LORA-361 PO (10:17)
[2016-11-11] MEDS ORDERED: HYDR50CA PO (10:17)
[2016-11-11] MEDS ORDERED: LOTR15T TOPICAL (10:17)
--- NOTE | 2016-11-11 10:20 | HHI.DS ---
Discharge Summary Admission Date Nov 08, 2016 at 13:38 Discharge Date: Nov 11, 2016 Admitting Diagnosis CVA, renal insufficiency (1) CVA (cerebral vascular accident) ICD Code: I63.9 Diagnosis: Principal (2) Chronic kidney disease (CKD) ICD Code: N18.9 Diagnosis: Secondary (3) Hypertension ICD Code: I10 Diagnosis: Secondary Procedures See hospital course. Brief History - From Admission This is a pleasant 81-year-old male past medical history of hypertension and history of subdural hematoma secondary to a fall status post loco hole presented with right-sided arm and leg weakness and numbness. Patient stated last night he had abruptly developed right-sided weakness and numbness. He said he went to sleep hoping it would go away and woke up with right lower extremity numbness and weakness. Patient stated that at the moment his right lower extremity strength and numbness is improving but continues to have upper extremity weakness and numbness. Patient denies any history of CVA but stated that prior he was on aspirin until he fell down the stairs in March 2016 and was found to have a subdural hematoma with a loco hole placement. Patient stated that after that he was told not to restart aspirin. He denies any new focal neurological deficit at the moment. Patient denies any headache, visual changes, nausea vomiting, palpitations, lightheadedness or dizziness, or any abnormal sensations from the heart. Patient's son is at the bedside and stated that patient seems to have been losing his short-term memory over years but it is mild. He said that he thinks his father has mild dementia. Patient also complains about having chronic toe itchiness in which his PCP recently placed him on gabapentin. He stated that he is not sure if the medication is working and wants some relief from this. access tech at the bedside during the interview. CBC/BMP: 11/08/16 1030 11/08/16 1030 Significant Findings Laboratory Tests Test 11/08/16 11/08/16 10:30 12:15 Hematocrit 38.8 % (39.0-51.0) Blood Urea Nitrogen 21 MG/DL (7-18) Creatinine 1.32 MG/DL (0.60-1.30) Estimat Glomerular Filtration 52 ML/MIN (>89) Rate Random Glucose 118 MG/DL (74-106) Aspartate Amino Transf 11 U/L (15-37) (AST/SGOT) Urine Mucus FEW /lpf (OCC) Imaging Last Impressions Brain MRI 11/08/16 1347 Signed Impressions: Service Date/Time: Tuesday, November 08, 2016 15:11 - CONCLUSION: 1. Small area of acute cortical infarct in the high left parietal cortices. 2. 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 William Williamson MD Head CTA 11/08/16 1011 Signed Impressions: Service Date/Time: Tuesday, November 08, 2016 11:54 - CONCLUSION: No acute [place] of [place] vascular abnormalities Avery Stevens MD Head CT 11/08/16 1011 Signed Impressions: Service Date/Time: Tuesday, November 08, 2016 11:54 - CONCLUSION: 1. 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 No acute intracranial abnormality identified. William Williamson MD Chest X-Ray 11/08/16 1011 Signed Impressions: Service Date/Time: Tuesday, November 08, 2016 10:17 - CONCLUSION: 1. Cardiomegaly. Stable compared to previous exam. William Williamson MD Neck CTA 11/08/16 0000 Signed Impressions: Service Date/Time: Tuesday, November 08, 2016 12:01 - CONCLUSION: No evidence of carotid stenosis Avery Stevens MD Head Magnetic Resonance Angiography 11/08/16 0000 Signed Impressions: Service Date/Time: Tuesday, November 08, 2016 15:11 - CONCLUSION: 1. No large or central vessel occlusion identified. 2. Patient has known acute cortical infarct on the MRI images on the left. William Williamson MD PE at Discharge GENERAL: This is a well-nourished, well-developed patient, in no apparent distress. SKIN: No rashes, ecchymoses or lesions. Cool and dry. HEAD: Atraumatic. Normocephalic. No temporal or scalp tenderness. EYES: Pupils equal round and reactive. Extraocular motions intact. No scleral icterus. No injection or drainage. ENT: Nose without bleeding, purulent drainage or septal hematoma. Throat without erythema, tonsillar hypertrophy or exudate. Uvula midline. Airway patent. NECK: Trachea midline. No JVD or lymphadenopathy. Supple, nontender, no meningeal signs. CARDIOVASCULAR: Regular rate and rhythm without murmurs, gallops, or rubs. RESPIRATORY: Clear to auscultation. Breath sounds equal bilaterally. No wheezes , rales, or rhonchi. GASTROINTESTINAL: Abdomen soft, non-tender, nondistended. No hepato-splenomegaly , or palpable masses. No guarding. MUSCULOSKELETAL: Right upper extremity and 3-4 out of 5 strength. Numbness to light touch. Right lower extremity 5 out of 5 strength. Mild numbness to light touch. Left sided upper and lower extremity 5 out of 5 strength. NEUROLOGICAL: Awake and alert AAO X3. Cranial nerves II through XII intact. Normal speech. lack coordination of limbs involved. Pt update on day of discharge Follow-up for CVA Patient stated that in between his toes they still itch. He stated that if the cream on them today. Otherwise he stated that he is gaining more strength back in his arm and is doing well. Patient's very anxious go to rehabilitation. Dealt with Dr. Jones son who stated that patient is cleared for discharge and that he just needs rehabilitation at the moment. Hospital Course Acute cortical infarct in the high left parietal cortices -Old area of lacunar infarct in the right nasal ganglia. -deficit right-sided arm and leg weakness/ paresthesia that is improving during the hospital course.. -not a candidate for TPA since patient was improving and was out of window for TPA treatment. -CT scan of the head showed no intracranial bleed. -CTA of head and neck are negative. -MRI showed CVA. -Initially allow permissive hypertension then restarted patient's home medication which blood pressure was controlled. -Echo showed mild systolic dysfunction with EF of 45-50% otherwise is relatively normal. -Patient's already on a statin LDL<70. Hemoglobin A1c was 5.4. -continue with ASA and statin. -No events over telemetry during hospital stay. -Neurologist was consulted and following and stated that okay to discharge patient home on aspirin 81 mg by mouth daily, statin, and his home blood pressure medication. -During the hospital course PT and OT consulted in which they worked with patient. Hypertension -Initially allow permissive hypertension to restart his blood pressure medication which his blood pressure was controlled. Hyperlipidemia -Continue with statin. LDL at goal. Urticaria the right toes -Most likely due to athlete's foot. -Patient was initially given betamethasone/clotrimazole cream with no improvement. -Since creme is not improving will try dose of Diflucan. Continue with the cream. -He was also put on Vistaril when necessary Claritin. Pt Condition on Discharge: Good Discharge Disposition: Discharge to SNF Discharge Time: > 30 minutes Discharge Instructions DIET: Follow Instructions for: Heart Healthy Diet Activities you can perform: Regular-No Restrictions Follow up Referrals: Neurology - 2 Weeks with Madeline Jones MD [facility]/ - Next Day New Medications: Aspirin DR (Aspirin EC) 81 Mg Tabdr 81 MG PO DAILY CVA #30 Ref 0 TAB Betamethasone-Clotrimazole Topical (Lotrisone Topical) 1-0.05% Cream 1 APPLIC TOPICAL Q12HR athlete foot #1 Ref 0 TUBE Hydroxyzine Pamoate (Hydroxyzine Pamoate) 50 Mg Cap 50 MG PO Q8H PRN ITCHING #15 Ref 0 CAP Loratadine (Claritin) 10 Mg Tab 10 MG PO DAILY itchiness #15 Ref 0 TAB Continued Medications: Cholecalciferol (Vitamin D) 1,000 Unit Tab 1000 UNITS PO DAILY Nutritional Supplement #1 Ref 0 BOTTLE Cilostazol (Cilostazol) 50 Mg Tab 50 MG PO BID INTERMITTENT CLAUDICATION Ref 0 TAB Cyanocobalamin (Vitamin B-12) 1,000 Mcg Subl 1000 MCG SL DAILY Nutritional Supplement Ref 0 TAB.SL Fluticasone Nasal [place] (Flonase Nasal [place]) 50 Mcg/Act [place] 1 SPRAY EACH NARE HS Allergies #1 Ref 0 BOTTLE Fosinopril-Hydrochlorothiazide (Fosinopril-Hydrochlorothiazide) 10-12.5 Mg Tab 1 TAB PO DAILY Omeprazole (Omeprazole) 20 Mg Tab 20 MG PO DAILY #30 Ref 0 TAB Simvastatin (Zocor) 20 Mg Tab 20 MG PO HS Cholesterol Management #30 Ref 0 TAB Discontinued Medications: Gabapentin (Gabapentin) 300 Mg Cap 300 MG PO HS #30 Ref 0 CAP Angela Walton MD Nov 11, 2016 10:20
[2016-11-11] MEDS ORDERED: ASPI81TA11 PO (10:23)
[2016-11-11] MEDS ORDERED: POLYETHYLENE GLYCOL 17 GM PKG PO ONE (14:00)
[2016-11-11] MEDS: ENOXAPARIN SODIUM 40 MG/0.4 ML SYRINGE SQ SCH (14:17)
[2016-11-11] MEDS: FLUTICASONE PROPIONATE 50 MCG/ACT 16 GM NASAL SPRAY EACH NARE SCH (22:15)
[2016-11-11] MEDS: PRAVASTATIN SOD 40 MG TAB PO SCH (22:15)
[2016-11-12 00:42] VITALS: BP 110/65; PULSE 73; RESP 18; TEMP 98; O2SAT 94
[2016-11-12 04:00] VITALS: BP 123/70; PULSE 72; RESP 16; TEMP 96.4; O2SAT 94
[2016-11-12 08:20] VITALS: BP 189/78; PULSE 96; RESP 20; TEMP 95.5; O2SAT 98
[2016-11-12 08:23] VITALS: BP 134/73; PULSE 75; RESP 14; TEMP 97.3; O2SAT 95
[2016-11-12] MEDS: LORATADINE 10 MG TAB PO SCH (08:42)
[2016-11-12] MEDS: SODIUM CHLORIDE 0.9% FLUSH 10 ML FLUSH IV FLUSH SCH (08:42)
[2016-11-12] MEDS: HYDROCHLOROTHIAZIDE 12.5 MG CAP PO SCH (08:43)
[2016-11-12] MEDS: CILOSTAZOL 50 MG TAB PO SCH (08:43)
[2016-11-12] MEDS: ASPIRIN EC 325 MG TABEC PO SCH (08:43)
[2016-11-12] MEDS: FLUCONAZOLE 100 MG TAB PO SCH (08:43)
[2016-11-12] MEDS: LISINOPRIL 10 MG TAB PO SCH (08:43)
[2016-11-12] MEDS: CHOLECALCIFEROL (VIT D3) 1000 UNIT TAB PO SCH (08:44)
[2016-11-12] MEDS: PANTOPRAZOLE SOD 20 MG DELAYED RELEASE TAB PO SCH (08:44)
[2016-11-12] MEDS: CYANOCOBALAMIN 1,000 MCG TAB PO SCH (08:44)
[2016-11-12 08:45] VITALS: PULSE 58
[2016-11-12] MEDS: BETAMETHASONE/CLOTRIMAZOLE CREAM 15 GM TOPICAL SCH (08:45)
--- NOTE | 2016-11-12 10:37 | HHI.PR ---
Subjective Remarks Follow-up for CVA and foot itchiness. Patient stated that he doesn't have foot itchiness anymore. He stated he is gaining more strength in his right arm. Patient is waiting for placement. Objective Vitals Vital Signs Date Time Temp Pulse Resp B/P Pulse Ox O2 Delivery O2 Flow Rate FiO2 11/12/16 08:23 97.3 75 14 134/73 95 11/12/16 08:20 95.5 96 20 189/78 98 11/12/16 04:00 96.4 72 16 123/70 94 11/12/16 00:42 98.0 73 18 110/65 94 11/11/16 20:54 97.1 80 18 107/61 94 11/11/16 19:15 83 11/11/16 15:50 97.7 82 20 129/68 94 11/11/16 12:36 96.8 85 20 112/64 94 I/O 11/11/16 11/11/16 11/11/16 11/12/16 11/12/16 11/12/16 07:00 15:00 23:00 07:00 15:00 23:00 Output Total 200 ml Balance -200 ml Output Urine Total 200 ml # Voids 1 2 3 # Bowel Movements 0 Result Diagram: 11/08/16 1030 11/08/16 1030 Objective Remarks GENERAL: This is a well-nourished, well-developed patient, in no apparent distress. SKIN: No rashes, ecchymoses or lesions. Cool and dry. HEAD: Atraumatic. Normocephalic. No temporal or scalp tenderness. EYES: Pupils equal round and reactive. Extraocular motions intact. No scleral icterus. No injection or drainage. ENT: Nose without bleeding, purulent drainage or septal hematoma. Throat without erythema, tonsillar hypertrophy or exudate. Uvula midline. Airway patent. NECK: Trachea midline. No JVD or lymphadenopathy. Supple, nontender, no meningeal signs. CARDIOVASCULAR: Regular rate and rhythm without murmurs, gallops, or rubs. RESPIRATORY: Clear to auscultation. Breath sounds equal bilaterally. No wheezes , rales, or rhonchi. GASTROINTESTINAL: Abdomen soft, non-tender, nondistended. No hepato-splenomegaly , or palpable masses. No guarding. MUSCULOSKELETAL: Right upper extremity and 5 out of 5 strength. Numbness to light touch. Right lower extremity 5 out of 5 strength. Mild numbness to light touch. Left sided upper and lower extremity 5 out of 5 strength. NEUROLOGICAL: Awake and alert AAO X3. Cranial nerves II through XII intact. Normal speech. lack coordination of limbs involved. Procedures See hospital course. Medications and IVs Current Medications Sodium Chloride (NS Flush) 2 ml UNSCH PRN IVF FLUSH AFTER USING IV ACCESS; Start 11/08/16 at 10:15; Stop 11/08/16 at 14:31; Status DC Iohexol 25 ml 25 ml STK-MED ONCE IV Last administered on 11/08/16 13:49; Start 11/08/16 at 12:32; Stop 11/08/16 at 12:33; Status DC Sodium Chloride (NS 1000 ml Inj) 1,000 ml @ 100 mls/hr Q10H IV Last administered on 11/10/16 05:40; Start 11/08/16 at 13:00; Stop 11/10/16 at 08:56; Status DC Aspirin (Ecotrin Ec) 325 mg DAILY PO Last administered on 11/12/16 08:43; Start 11/08/16 at 15:00 Sodium Chloride (NS Flush) 2 ml BID IV FLUSH Last administered on 11/12/16 08: 42; Start 11/08/16 at 21:00 Sodium Chloride (NS Flush) 2 ml UNSCH PRN IV FLUSH FLUSH AFTER USING IV ACCESS ; Start 11/08/16 at 14:30 Insulin Aspart (NovoLOG SUPPLEMENTAL SCALE) 1 ACHS SLIDING SCALE SQ ; Start 11/08/16 at 16:00; Stop 11/10/16 at 10:48; Status DC Dextrose (D50w (Vial) Inj) 25 ml UNSCH PRN IV PUSH HYPOGLYCEMIA-SEE COMMENTS; Start 11/08/16 at 14:30; Stop 11/10/16 at 10:48; Status DC Glucagon (Glucagon Inj) 1 mg UNSCH PRN IM/SQ HYPOGLYCEMIA-SEE COMMENTS; Start 11/08/16 at 14:30; Stop 11/10/16 at 10:48; Status DC Enoxaparin Sodium (Lovenox Inj) 40 mg Q24H SQ Last administered on 11/11/16 14 :17; Start 11/08/16 at 15:00 Betamethasone/ Clotrimazole (Lotrisone Cream) 1 applic Q12HR TOPICAL Last administered on 11/12/16 08:45; Start 11/08/16 at 15:00 Cholecalciferol (Vitamin D3) 1,000 units DAILY PO Last administered on 08:44; Start 11/09/16 at 09:00 Cilostazol (Pletal) 50 mg BID PO Last administered on 11/12/16 08:43; Start at 21:00 Cyanocobalamin (Vitamin B12) 1,000 mcg DAILY PO Last administered on 11/12/16 08:44; Start 11/09/16 at 09:00 Fluticasone Propionate (Flonase Fran Spr) 1 spray HS EACH NARE Last administered on 11/11/16 22:15; Start 11/08/16 at 21:00 Pantoprazole Sodium (Protonix) 20 mg DAILY PO Last administered on 11/12/16 08 :44; Start 11/09/16 at 09:00 Pravastatin Sodium (Pravachol) 40 mg HS PO Last administered on 11/11/16 22:15 ; Start 11/08/16 at 21:00 Hydroxyzine Pamoate (Vistaril) 25 mg Q8H PRN PO ITCHING Last administered on 14:04; Start 11/09/16 at 14:00; Stop 11/10/16 at 10:32; Status DC Non-Formulary Medication 1 tab DAILY PO ; Start 11/10/16 at 10:30; Status UNV Hydroxyzine Pamoate (Vistaril) 50 mg Q8H PRN PO ITCHING; Start 11/10/16 at 14:00 Fluconazole (Diflucan) 150 mg DAILY PO Last administered on 11/12/16 08:43; Start 11/10/16 at 11:00 Loratadine (Claritin) 10 mg DAILY PO Last administered on 11/12/16 08:42; Start 11/10/16 at 11:00 Lisinopril (Prinivil) 10 mg DAILY PO Last administered on 11/12/16 08:43; Start 11/10/16 at 11:00 Hydrochlorothiazide (Microzide) 12.5 mg DAILY PO Last administered on 08:43; Start 11/10/16 at 11:00 Polyethylene Glycol (Miralax) 17 gm ONCE ONCE PO Last administered on 14:00; Start 11/11/16 at 14:00; Stop 11/11/16 at 14:05; Status DC A/P Problem List: (1) CVA (cerebral vascular accident) ICD Code: I63.9 Status: Acute (2) Chronic kidney disease (CKD) ICD Code: N18.9 Status: Acute (3) Hypertension ICD Code: I10 Status: Acute Assessment and Plan Acute cortical infarct in the high left parietal cortices -Old area of lacunar infarct in the right nasal ganglia. -deficit right-sided arm and leg weakness/ paresthesia that is improving during the hospital course.. -not a candidate for TPA since patient was improving and was out of window for TPA treatment. -CT scan of the head showed no intracranial bleed. -CTA of head and neck are negative. -MRI showed CVA. -Initially allow permissive hypertension then restarted patient's home medication which blood pressure was controlled. -Echo showed mild systolic dysfunction with EF of 45-50% otherwise is relatively normal. -Patient's already on a statin LDL<70. Hemoglobin A1c was 5.4. -continue with ASA and statin. -No events over telemetry during hospital stay. -Neurologist was consulted and following and stated that okay to discharge patient home on aspirin 81 mg by mouth daily, statin, and his home blood pressure medication. -During the hospital course PT and OT consulted in which they worked with patient. Hypertension -Initially allow permissive hypertension to restart his blood pressure medication which his blood pressure was controlled. Hyperlipidemia -Continue with statin. LDL at goal. Urticaria the right toes -Most likely due to athlete's foot. -Patient was initially given betamethasone/clotrimazole cream with no improvement. -Since creme is not improving will try dose of Diflucan. Continue with the cream. -He was also put on Vistaril when necessary Claritin. Discharge Planning Patient initially wanted to go to [facility] but the cost is too much. He is asking to go to [facility]. Dealt with case management in regards to this. He is stable for discharge. Angela Walton MD Nov 12, 2016 10:37
--- NOTE | 2016-11-12 16:50 | PD.CONS ---
[facility] Service Rehabilitation Medicine Consult Requested By Dr. Walton Reason for Consult Comprehensive rehabilitation evaluation. Primary Care Physician Brie Han Do, MD History of Present Illness Pelon Oakes is an 81 year old right hand dominant male admitted to [facility] 11/08/16 with right sided weakness and numbness. Head CT was negative. Neck CTA showed no carotid stenosis. Brain MRI 11/08/16 showed small acute cortical infarct high right parietal cortices. Review of Systems Constitutional: DENIES: Fatigue Eyes: DENIES: Diplopia Ears, nose, mouth, throat: COMPLAINS OF: Hearing loss, DENIES: Throat pain Respiratory: DENIES: Shortness of breath Cardiovascular: DENIES: Chest pain Gastrointestinal: COMPLAINS OF: Constipation, DENIES: Abdominal pain Genitourinary: COMPLAINS OF: Urinary frequency, Urgency, DENIES: Urinary incontinence Musculoskeletal: DENIES: Back pain Integumentary: DENIES: Rash Hematologic/lymphatic: DENIES: Bruising Neurologic: COMPLAINS OF: Localized weakness, Paresthesias, DENIES: Headache, Speech Problems Psychiatric: DENIES: Confusion Past Family Social History Allergies: Coded Allergies: No Known Allergies (Verified , 06/19/16) Past Medical History HTN Hyperlipidemia Previous SDH Possible mild dementia Reported Medications [place] hole evacuation SDH Family History Negative. Parents "old age" Social History Prior to admission independent with mobility and ADL's. Lives with in mobile home with 3 steps to enter. No tobacco. Exam I&O / VS 11/11/16 11/11/16 11/12/16 15:00 23:00 07:00 Output Total 200 ml Balance -200 ml Output Urine Total 200 ml # Voids 2 3 # Bowel Movements 0 Vital Signs Date Time Temp Pulse Resp B/P Pulse Ox O2 Delivery O2 Flow Rate FiO2 11/12/16 08:45 58 11/12/16 08:23 97.3 75 14 134/73 95 11/12/16 08:20 95.5 96 20 189/78 98 11/12/16 04:00 96.4 72 16 123/70 94 11/12/16 00:42 98.0 73 18 110/65 94 11/11/16 20:54 97.1 80 18 107/61 94 11/11/16 19:15 83 General: No acute distress Respiratory: Lungs CTA, Non-labored respirations, BS equal Gastrointestinal: Positive Bowel Sounds, Non-Distended Cardiovascular: Normal rate, Regular Rhythm Skin: Other (No rash noted) Musculoskeletal: Swelling (None in LE) Psychiatric: Cooperative, Appropriate mood & affect Orientation: oriented to Self, oriented to Place, oriented to Time, oriented to Situation Neurologic: Cranial Nerves, Speech (No dysarthria or word finding difficulties) Motor: Right Upper Extremity (4/5), Left Upper Extremity (5/5), Right Lower Extremity (4/5 proximally and4-/5 distally ), Left Lower Extremity (5/5) Sensory Intact to light touch and proprioception DTRs: Normal Babinski: Negative Clonus: Negative Assessment and Plan Diagnosis: (1) CVA (cerebral vascular accident) Assessment 1. Left parietal CVA with right hemiparesis 2. HTN 3. Hyperlipidemia 4. Previous SDH S/P [place] hole evacuation 5. Possible mild dementia Plan 1. Patient progressing with mobility and min assist of 2 to ambulate 20 feet with PT with walker. Continue to mobilize anticipating that patient should progress well. 2. OT addressing ADL's and mod assist with UE dressing and dependent for LE dressing 3. No ST needs identified 4. Will need ongoing rehabilitation at discharge and case management has arranged for SNF placement 5. Will follow as clinic as appropriate Thank you for this consult. Diana Agudelo MD Nov 12, 2016 16:50
[2016-11-26] MEDS ORDERED: LOTR1CRE TOPICAL (16:28)
[2016-11-26] MEDS ORDERED: DIPH50TA3 PO (16:40)
[2016-11-26] MEDS ORDERED: MAGNSOL2 PO (16:47)
[2016-11-26] MEDS ORDERED: FLEEENE3 RECTAL (16:47)
[2016-11-26] MEDS ORDERED: MILKSUS PO (16:47)
[2016-11-26] MEDS ORDERED: DULC10SU3 RECTAL (16:47)
== END 2016-11-12 13:12 | DRG 65 ==
LOC: NEPE 09:50 → NEDA 13:38 → N05A 16:54
PROVIDERS: ADMIT Family Medicine; ATTEND Family Medicine
DX: I63.9 Cerebral infarction, unspecified (principal); I69.351 Hemiplegia and hemiparesis following cerebral infarction affecting right dominant side; E78.00 Pure hypercholesterolemia, unspecified; I25.10 Atherosclerotic heart disease of native coronary artery without angina pectoris; B35.3 Tinea pedis; I12.9 Hypertensive chronic kidney disease with stage 1 through stage 4 chronic kidney disease, or unspecified chronic kidney disease; R29.715 NIHSS score 15; L50.9 Urticaria, unspecified; Z72.0 Tobacco use; N18.9 Chronic kidney disease, unspecified; E78.5 Hyperlipidemia, unspecified
CPT/HCPCS: 70450; 70496; 70498; 70544; 70551; 71010; 80053; 80061; 81001; 82948; 83036; 85025; 85610; 85730; 93005; 93306; J1650; J7030; Q0177; Q9967

== ENCOUNTER 2016-11-25 10:24 | Emergency (ER) | payer MEDICARE, OTHER ==
[~2016-11-25] VITALS: Ht 185.4 cm; Wt 100.0 kg
[~2016-11-25 10:24] MED LIST changes: +ASPI81TA11 PO; +FLUT1SPR5 EACH NARE; +FOSI10TA PO; -FOSI20TA PO; +HYDR50CA PO; +LORA-361 PO; +LOTR15T TOPICAL
[2016-11-25 10:37] VITALS: BP 122/97; PULSE 80; RESP 18; O2SAT 97
[2016-11-25 11:00] VITALS: RESP 18; O2SAT 94
[2016-11-25] MEDS ORDERED: SODIUM CHLORIDE 0.9% FLUSH 10 ML FLUSH IVF PRN (11:00)
[2016-11-25 11:29] LABS: AUTOMATED NEUTROPHIL # 6.9 TH/MM3 (1.8-7.7); BASOPHIL # 0.1 TH/MM3 (0-0.2); BASOPHIL % 1.2 % (0.0-2.0); EOSINOPHIL # 0.3 TH/MM3 (0-0.4); EOSINOPHIL % 2.9 % (0.0-4.0); HEMATOCRIT 39.9 % (39.0-51.0); HEMO FLAGS DIFF FINAL; LYMPH % 13.9 % (9.0-44.0); LYMPHOCYTE # 1.3 TH/MM3 (1.0-4.8); MEAN CELL VOLUME 85.8 FL (80.0-100.0); MEAN CORPUSCULAR HEMOGLOBIN 29.6 PG (27.0-34.0); MEAN CORPUSCULAR HGB CONC 34.5 % (32.0-36.0); MONO % 6.6 % (0.0-8.0); NEUT % 75.4 % (16.0-70.0); PLATELET COUNT 259 TH/MM3 (150-450); RED BLOOD COUNT 4.64 MIL/MM3 (4.50-5.90); RED CELL DISTRIBUTION WIDTH 13.4 % (11.6-17.2); WHITE BLOOD COUNT 9.2 TH/MM3 (4.0-11.0)
[2016-11-25] MEDS ORDERED: LIDOCAINE 1%/EPINEPHrine 1:100,000 SOLN 20 ML VIAL INFIL ONE (11:30)
[2016-11-25] MEDS ORDERED: VANCOMYCIN INJ 1,000 MG in SODIUM CHLOR 0.9% 250 ML INJ 250 ML IV ONE (11:30)
--- NOTE | 2016-11-25 11:41 | PD ---
HPI Chief Complaint: Syncope/Near-Syncope Time Seen by Provider: 11:33 Travel History International Travel<30 days: No Contact w/Intl Traveler<30days: No Traveled to known affect area: No History of Present Illness HPI 81-year-old male presents to the ED by EMS for evaluation after syncopal episode in the rosin barrel filler's office. Patient states that he was waiting to establish care with a rosin barrel filler when he began to feel lightheaded. He asked to lie down. He denies falling or hitting his head. He denies LOC. He states that lightheadedness lasted approximately 3-4 minutes before resolving spontaneously. He endorses similar episodes while waiting in the doctor's office previously. On presentation he denies headache, dizziness, vision changes, fevers, chills chest pain, shortness of breath, abdominal pain, nausea , vomiting, numbness, tingling, weakness, limitations to range of motion of the extremities. He does complain of intermittent, nonproductive cough as well as left foot pain and redness. States that the foot has been painful for approximately 3 weeks. 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 Review of the record reveals that he's been on by mouth Levaquin 500 mg 4 days. He states that he was scheduled to be released from [facility] today. The occupational therapist as scheduled to come to the house tomorrow. He is ambulatory with a walker. He is accompanied by his . PFSH Past Medical History Cancer: No Cardiovascular Problems: Yes High Cholesterol: Yes Cerebrovascular Accident: Yes Coronary Artery Disease: Yes Diabetes: No Diminished Hearing: No Endocrine: No Gastrointestinal Disorders: No Genitourinary: No Hypertension: Yes Immune Disorder: No Implanted Vascular Access Dvce: No Musculoskeletal: No Neurologic: Yes Psychiatric: No Reproductive: No Respiratory: No Seizures: No ?: Not Past Surgical History Abdominal Surgery: Yes (appedectomy as a child) Cardiac Surgery: No Ear Surgery: No Endocrine Surgery: No Eye Surgery: No Genitourinary Surgery: No Gynecologic Surgery: No Neurologic Surgery: Yes (burrhole March 2016, subdural hemmorhage) Oral Surgery: No Thoracic Surgery: No Other Surgery: Yes Social History Alcohol Use: Yes Tobacco Use: Yes Substance Use: No Allergies-Medications (Allergen,Severity, Reaction): Coded Allergies: No Known Allergies (Verified , 06/19/16) Reported Meds & Prescriptions Reported Meds & Active Scripts Active Clindamycin (Clindamycin HCl) 300 Mg Cap 300 Mg PO Q6H 10 Days Aspirin EC (Aspirin) 81 Mg Tabdr 81 Mg PO DAILY Claritin (Loratadine) 10 Mg Tab 10 Mg PO DAILY Hydroxyzine Pamoate 50 Mg Cap 50 Mg PO Q8H PRN Lotrisone Topical (Betamethasone/Clotrimazole) 1-0.05% Cream 1 Applic TOPICAL Q12HR Reported Flonase Nasal [place] (Fluticasone Nasal [place]) 50 Mcg/Act [place] 1 [place] EACH NARE HS Fosinopril-Hydrochlorothiazide 10-12.5 Mg Tab 1 Tab PO DAILY Vitamin D (Cholecalciferol) 1,000 Unit Tab 1,000 Units PO DAILY Vitamin B-12 (Cyanocobalamin) 1,000 Mcg Subl 1,000 Mcg SL DAILY Zocor (Simvastatin) 20 Mg Tab 20 Mg PO HS Cilostazol 50 Mg Tab 50 Mg PO BID Omeprazole 20 Mg Tab 20 Mg PO DAILY Review of Systems Except as stated in HPI: all other systems reviewed are Neg Physical Exam Narrative GENERAL: Well-nourished, well-developed pleasant white male in no acute distress. SKIN: Focused skin assessment warm/dry. There is a crusted puncture wound on the distal third of the plantar aspect of the foot. There is a 5 cm x 8 cm tender bullae with purulent discharge on the plantar aspect of the left foot. There is tender erythema that extends to the ankle on the medial side of the foot. HEAD: Normocephalic. Atraumatic. EYES: No scleral icterus. No injection or drainage. PERRLA. EOMI. NECK: Supple, trachea midline. No JVD or lymphadenopathy. CARDIOVASCULAR: Regular rate and rhythm without murmurs, gallops, or rubs. 2+ DP and radial pulses bilaterally. RESPIRATORY: Breath sounds clear and equal bilaterally. No accessory muscle use. GASTROINTESTINAL: Abdomen soft, non-tender, nondistended. Active bowel sounds. MUSCULOSKELETAL: No cyanosis, or edema. Patient retains full, active ROM of bilateral lower extremities. NEUROLOGICAL: Awake and alert. Cranial nerves II through XII intact. Motor and sensory grossly within normal limits. 5/5 muscle strength in all muscle groups. Normal speech. No pronator drift. BACK: Nontender without obvious deformity. No CVA tenderness. Data Data Last Documented VS Vital Signs Date Time Temp Pulse Resp B/P Pulse Ox O2 Delivery O2 Flow Rate FiO2 11/25/16 11:55 85 18 105/65 95 Room Air Orders Electrocardiogram (11/25/16 10:51) Basic Metabolic Panel (Bmp) (11/25/16 10:51) Complete Blood Count With Diff (11/25/16 10:51) Magnesium (Mg) (11/25/16 10:51) Troponin I (11/25/16 10:51) Ecg Monitoring (11/25/16 10:51) Iv Access Insert/Monitor (11/25/16 10:51) Oximetry (11/25/16 10:51) Sodium Chloride 0.9% Flush (Ns Flush) (11/25/16 11:00) Lidocai-Epi 1%-1:100,000 Inj (Xylocaine- (11/25/16 11:30) Vancomycin Inj (Vancomycin Inj) (11/25/16 11:30) Abscess Culture And Gram Stain (11/25/16 11:25) Chest, Single Ap (11/25/16 ) Foot, Complete ([id number]) (11/25/16 12:19) Labs Laboratory Tests Test 11/25/16 11:00 White Blood Count 9.2 TH/MM3 Red Blood Count 4.64 MIL/MM3 Hemoglobin 13.7 GM/DL Hematocrit 39.9 % Mean Corpuscular Volume 85.8 FL Mean Corpuscular Hemoglobin 29.6 PG Mean Corpuscular Hemoglobin 34.5 % Concent Red Cell Distribution Width 13.4 % Platelet Count 259 TH/MM3 Mean Platelet Volume 8.4 FL Neutrophils (%) (Auto) 75.4 % Lymphocytes (%) (Auto) 13.9 % Monocytes (%) (Auto) 6.6 % Eosinophils (%) (Auto) 2.9 % Basophils (%) (Auto) 1.2 % Neutrophils # (Auto) 6.9 TH/MM3 Lymphocytes # (Auto) 1.3 TH/MM3 Monocytes # (Auto) 0.6 TH/MM3 Eosinophils # (Auto) 0.3 TH/MM3 Basophils # (Auto) 0.1 TH/MM3 CBC Comment DIFF FINAL Differential Comment Sodium Level 137 MEQ/L Potassium Level 3.7 MEQ/L Chloride Level 103 MEQ/L Carbon Dioxide Level 23.4 MEQ/L Anion Gap 11 MEQ/L Blood Urea Nitrogen 39 MG/DL Creatinine 1.53 MG/DL Estimat Glomerular Filtration 44 ML/MIN Rate Random Glucose 114 MG/DL Calcium Level 8.9 MG/DL Magnesium Level 2.2 MG/DL Troponin I LESS THAN 0.02 NG/ML MDM Medical Decision Making Medical Screen Exam Complete: Yes Emergency Medical Condition: Yes Interpretation(s) EKG rate 81, sinus rhythm. NH interval 191, QRS 105, QTC 429. Normal axis. Borderline LAD. No concerning ST elevations or depressions. Reviewed by Dr. Ortiz. Differential Diagnosis Syncope versus pneumonia versus abscess versus cellulitis versus osteomyelitis versus other Narrative Course 81-year-old male presents to the ED by EMS for evaluation after syncopal episode in the rosin barrel filler's office. Patient states that he was waiting to establish care when he began to feel lightheaded. He asked to lie down. He denies falling or hitting his head. He denies LOC. He states that lightheadedness lasted approximately 3-4 minutes before resolving spontaneously. He endorses similar episodes throughout his lifetime. On presentation he denies headache, dizziness, vision changes, fevers, chills, chest pain, SOB, abdominal pain, N/V, numbness, tingling, weakness, limitations to range of motion of the extremities. He does complain of intermittent, nonproductive cough as well as left foot pain and redness. Foot has been painful for ~3 weeks. Patient is 3 weeks S/P CVA with mild residual right- sided weakness. He states that he was scheduled to be released from [facility] today. The occupational therapist as scheduled to come to the house tomorrow. He is ambulatory with a walker. He is accompanied by his who also ambulates with a walker. Review of the rehab record reveals that he's been on by mouth Levaquin 500 mg 4 days. Vitals reviewed. Physical exam reveals a pleasant, alert, oriented white male in no acute distress. Chest is clear to auscultation bilaterally. Abdomen soft, nontender. Equal pulses in the distal extremities bilaterally. No focal neural deficits. There is a 4cm x 8cm bullae on the plantar aspect of the left foot which communicates with a puncture wound on the distal third of the foot. IV was established. Patient was placed on continuous monitoring. CBC: 30 DC 9.2. 75.4% neutrophils. Hemoglobin 13.7. CMP: BUN 39, creatinine 1.53. Review of record reveals this is near patient's baseline. Troponin less than 0.02. EKG: As above Chest x-ray: No acute disease per radiology read. Foot x-ray: Patient was administered 1 g vancomycin IV. I&D of the left foot was performed. Please see procedure note for details. I feel discharge to the rehabilitation with outpatient prescription for clindamycin 300 mg 4 times a day 10 days and podiatric follow-up is appropriate. Discussed this plan of care with the patient and his family and they are agreeable. He is stable and discharged to the rehabilitation Center. Procedures Procedure Narrative INCISION AND DRAINAGE OF ABSCESS: The area was prepped and was sterilely draped. A subcutaneous wheal of 1% Xylocaine with epinephrine with a total number 0.5 mL was used to anesthetize the area properly. A number 11 scalpel was used to make a 2-cm incision across the area of the abscess. The abscess was drained, complex loculations were broken down, and irrigated with normal saline. Cultures were obtained. Sterile dressing applied. Patient advised to keep the wound clean, dry and covered. Diagnosis Primary Impression: Vasovagal near syncope Additional Impressions: Foot abscess, left Cellulitis of left foot Referrals: [facility] Patient Instructions: Abscess Incision and Drainage (ED), General Instructions , Near Syncope (ED) Additional Instructions: Rest, hydrate. Keep the foot clean, dry and covered. Take the antibiotics as they are prescribed, even if your symptoms resolved. Utilize [id number] pain medications, as described on the label, as needed. Follow-up with the rosin barrel filler as discussed. Return to the ED for any urgent or emergent medical condition. Med/Other Pt SpecificInfo: Prescription(s) given Scripts Clindamycin 300 Mg [id number] Mg PO Q6H 10 Days Ref 0 Prov:Darlene Galloway MD 11/25/16 Disposition: 03 DISCHARGE TO SNF Condition: Stable Kitty Alston Nov 25, 2016 11:41
[2016-11-25 11:49] LABS: ANION GAP 11 MEQ/L (5-15); BICARBONATE 23.4 MEQ/L (21.0-32.0); BLOOD UREA NITROGEN 39 MG/DL (7-18); CHLORIDE 103 MEQ/L (98-107); GLOMERULAR FILTRATION RATE 44 ML/MIN (>89); MAGNESIUM 2.2 MG/DL (1.5-2.5); POTASSIUM 3.7 MEQ/L (3.5-5.1); SODIUM (NA) 137 MEQ/L (136-145)
[2016-11-25 11:55] VITALS: BP 105/65; PULSE 85; RESP 18; O2SAT 95
--- NOTE | 2016-11-25 12:15 | RADRPT ---
EXAM DATE/TIME: 11/25/2016 11:48 [facility] COMPARISON: CHEST SINGLE AP, November 08, 2016, 10:17. INDICATIONS : Weakness, passed out today at the doctor's office MEDICAL HISTORY : None. SURGICAL HISTORY : None. ENCOUNTER: Initial ACUITY: 1 day PAIN SCORE: 0/10 LOCATION: Bilateral chest FINDINGS: A single view of the chest demonstrates the lungs to be symmetrically aerated without evidence of mas s, infiltrate or effusion. The cardiomediastinal contours are unremarkable. Osseous structures are intact. CONCLUSION: No acute disease. Ceasar Castle MD on November 25, 2016 at 12:13 Board Certified Radiologist. This report was verified electronically.
[2016-11-25] MEDS ORDERED: CLIN1CAP6 PO (13:45)
--- NOTE | 2016-11-25 14:23 | RADRPT ---
EXAM DATE/TIME: 11/25/2016 12:39 [facility] COMPARISON: No previous studies available for comparison. INDICATIONS : Left foot pain. Evaluate for osteomyelitis, open wound on the plantar surface of the foot. MEDICAL HISTORY : Hypertension. Stroke. Smoker. SURGICAL HISTORY : None. ENCOUNTER: Initial ACUITY: 3 weeks PAIN SCORE: 0/10 LOCATION: Left plantar surface. FINDINGS: Three view examination of the left foot demonstrates no acute fracture or malalignment. There is mild soft tissue prominence along the fifth digit. There is no destructive change. There is no periosteal new bone formation. The tarsal bones appear intact. The interphalangeal and metatarsophalangeal emely nts are intact. The calcaneus is intact. Bony mineralization is normal. CONCLUSION: Mild soft tissue prominence over the fifth digit with no evidence to suggest osteomye litis. Brian Ruiz MD on November 25, 2016 at 14:19 Board Certified Radiologist. This report was verified electronically.
--- NOTE | 2016-11-25 15:10 | PD ---
Data Data Last Documented VS Vital Signs Date Time Temp Pulse Resp B/P Pulse Ox O2 Delivery O2 Flow Rate FiO2 11/25/16 11:55 85 18 105/65 95 Room Air Orders Electrocardiogram (11/25/16 10:51) Basic Metabolic Panel (Bmp) (11/25/16 10:51) Complete Blood Count With Diff (11/25/16 10:51) Magnesium (Mg) (11/25/16 10:51) Troponin I (11/25/16 10:51) Ecg Monitoring (11/25/16 10:51) Iv Access Insert/Monitor (11/25/16 10:51) Oximetry (11/25/16 10:51) Sodium Chloride 0.9% Flush (Ns Flush) (11/25/16 11:00) Lidocai-Epi 1%-1:100,000 Inj (Xylocaine- (11/25/16 11:30) Vancomycin Inj (Vancomycin Inj) (11/25/16 11:30) Abscess Culture And Gram Stain (11/25/16 11:25) Chest, Single Ap (11/25/16 ) Foot, Complete ([id number]) (11/25/16 12:19) Labs Laboratory Tests Test 11/25/16 11:00 White Blood Count 9.2 TH/MM3 Red Blood Count 4.64 MIL/MM3 Hemoglobin 13.7 GM/DL Hematocrit 39.9 % Mean Corpuscular Volume 85.8 FL Mean Corpuscular Hemoglobin 29.6 PG Mean Corpuscular Hemoglobin 34.5 % Concent Red Cell Distribution Width 13.4 % Platelet Count 259 TH/MM3 Mean Platelet Volume 8.4 FL Neutrophils (%) (Auto) 75.4 % Lymphocytes (%) (Auto) 13.9 % Monocytes (%) (Auto) 6.6 % Eosinophils (%) (Auto) 2.9 % Basophils (%) (Auto) 1.2 % Neutrophils # (Auto) 6.9 TH/MM3 Lymphocytes # (Auto) 1.3 TH/MM3 Monocytes # (Auto) 0.6 TH/MM3 Eosinophils # (Auto) 0.3 TH/MM3 Basophils # (Auto) 0.1 TH/MM3 CBC Comment DIFF FINAL Differential Comment Sodium Level 137 MEQ/L Potassium Level 3.7 MEQ/L Chloride Level 103 MEQ/L Carbon Dioxide Level 23.4 MEQ/L Anion Gap 11 MEQ/L Blood Urea Nitrogen 39 MG/DL Creatinine 1.53 MG/DL Estimat Glomerular Filtration 44 ML/MIN Rate Random Glucose 114 MG/DL Calcium Level 8.9 MG/DL Magnesium Level 2.2 MG/DL Troponin I LESS THAN 0.02 NG/ML MDM Supervised Visit with MIGUEL ÁNGEL: Yes Narrative Course I, Dr. Galloway, have reviewed the dulce practice practioner's documentation and am in agreement, met with the patient face to face, made the diagnosis, and the medical decision making was done by me. *My assessment and Findings: 81-year-old male here after a syncopal episode of this physician's office. Patient was going to for evaluation of the left lower extremityfoot wound at a human services case manager office when he had a brief syncopal episode. Patient felt lightheaded, and then tried to lie down, did syncope. Patient denies any chest pain, shortness breath or palpitations since. He has a history of "white coat syndrome and has recurrent syncopal episodes, well- documented. Unfortunately patient was just admitted to our hospital for CVA and had very extensive workup including cardiac ultrasound, MRI/MRA that was unremarkable other than CVA. Patient states that he has been having wound to the left foot. He's been on Levaquin for the last 40 days without any improvement. On exam he has a blister on the plantar aspect of the left foot with associated infection, purulent fluid. Unclear whether this is just blister versus deeper infection and therefore his blister was opened, explored with Q-tip and does not appear to involve any deeper structures. X-ray was obtained without evidence of any osteomyelitis. The remainder patient's workup for arrhythmia, electrolyte abnormality, symptomatic anemia, ACS were all unremarkable. Given his recent hospital stay for CVA a do not think that admission for recurrent syncope evaluation is warranted especially given the history of recurrent syncopal episodes with office visits. Patient was able to ambulate on the foot, albeit with some pain will be discharged back to his care facility where he is currently convalescing after CVA. Patient and family were agreeable with plan. Diagnosis Primary Impression: Vasovagal near syncope Additional Impressions: Foot abscess, left Cellulitis of left foot Referrals: Occupational Health Physiotherapist Patient Instructions: General Instructions, Abscess Incision and Drainage (ED) , Near Syncope (ED) Additional Instruction: Rest, hydrate. Keep the foot clean, dry and covered. Take the antibiotics as they are prescribed, even if your symptoms resolved. Utilize [id number] pain medications, as described on the label, as needed. Follow-up with the human services case manager as discussed. Return to the ED for any urgent or emergent medical condition. Scripts Clindamycin 300 Mg [id number] Mg PO Q6H 10 Days Ref 0 Prov:Darlene Galloway MD 11/25/16 Disposition: 03 DISCHARGE TO SNF Condition: Stable Darlene Galloway MD Nov 25, 2016 15:10
--- NOTE | 2016-11-26 13:08 | EKG ---
Date Performed: 11/25/2016 Time Performed: 10:33:52 PTAGE: 81 years EKG: Sinus rhythm BORDERLINE LEFT AXIS DEVIATION BORDERLINE ECG PREVIOUS TRACING : 11/08/2016 10.01 No significant change from previous tracing noted. DOCTOR: Anuj Koenig Interpretating Date/Time 11/26/2016 13:05:55
[2016-11-26] MEDS ORDERED: LOTR1CRE TOPICAL ×2 (16:28)
[2016-11-26] MEDS ORDERED: LEVA500T PO (16:34)
[2016-11-26] MEDS ORDERED: DIPH50TA3 PO ×2 (16:40)
[2016-11-26] MEDS ORDERED: FLEEENE3 RECTAL ×2 (16:47)
[2016-11-26] MEDS ORDERED: MILKSUS PO ×2 (16:47)
[2016-11-26] MEDS ORDERED: MAGNSOL2 PO ×2 (16:47)
[2016-11-26] MEDS ORDERED: DULC10SU3 RECTAL ×2 (16:47)
== END 2016-11-25 18:33 ==
LOC: NEPE 10:24
DX: R55 Syncope and collapse (principal); L02.612 Cutaneous abscess of left foot; L03.116 Cellulitis of left lower limb; B96.89 Other specified bacterial agents as the cause of diseases classified elsewhere; R94.31 Abnormal electrocardiogram [ECG] [EKG]; R05 Cough; I10 Essential (primary) hypertension; Z72.0 Tobacco use; Z86.79 Personal history of other diseases of the circulatory system; Z86.69 Personal history of other diseases of the nervous system and sense organs
CPT/HCPCS: 10060; 71010; 73630; 80048; 83735; 84484; 85025; 87070; 87185; 87205; 93005; 96374; 99284; J3370; J7050

== ENCOUNTER 2016-11-26 11:26 | Inpatient (IN) | payer OTHER, MEDICARE ==
[~2016-11-26] VITALS: Ht 185.4 cm; Wt 95.0 kg
[~2016-11-26 11:26] MED LIST changes: +CLIN1CAP6 PO
[2016-11-26 11:27] VITALS: BP 109/68; PULSE 85; RESP 16; TEMP 97.8; O2SAT 96
--- NOTE | 2016-11-26 11:37 | PD ---
Physical Exam Date Seen by Provider: Nov 26, 2016 Time Seen by Provider: 11:33 Narrative Pt presents with possible cellulitis of the left foot. He was sent by Dr. Skinner to be admitted. Pt reports the pain is a 2-3/10. Pt denies any fevers, chills. Foot has white drainage, with odor. Pt has a foreign body in his foot a month ago, he was unaware there was anything in his foot. Family reports Dr. Kim was discussing having a vascular surgeon evaluate him for PVD/PAD. VSS , awaiting bed placement. Data Data Last Documented VS Vital Signs Date Time Temp Pulse Resp B/P Pulse Ox O2 Delivery O2 Flow Rate FiO2 11/26/16 11:27 97.8 85 16 109/68 96 MDM Supervised Visit with MIGUEL ÁNGEL: Kisha Hsu Nov 26, 2016 11:37
[2016-11-26] MEDS ORDERED: SODIUM CHLOR 0.9% 1000 ML INJ 1,000 ML IV SCH (11:55)
--- NOTE | 2016-11-26 11:58 | PD ---
HPI Chief Complaint: Pain: Acute or Chronic Time Seen by Provider: 11:58 Travel History International Travel<30 days: No Contact w/Intl Traveler<30days: No Traveled to known affect area: No History of Present Illness HPI 81-year-old male with a history of hypertension, hyperlipidemia, CVA presents to the emergency department for evaluation of left foot swelling and pain. Patient was sent here by low emission automobile designer Dr. Kim with orders for labs, antibiotics and an MRI of the left foot to rule out abscess. The patient states he's had pain on the plantar aspect of his left foot for the past 3 weeks. States it began before his recent stroke 3 weeks ago. States he thinks it began when he was exercising more several weeks ago. States that the pain is brought on by putting weight on the foot. Alleviated with nonweightbearing and rest. States that he has had worsening swelling in the foot for the past 2 weeks. States that when he went to the low emission automobile designer's office today he cut some of the skin from around the area, states that he thinks he removed a piece of wood. States that he told him he needed to come straight to the emergency department and will need to be admitted. The patient denies any fever, chills, nausea, vomiting, numbness or tingling, weakness. PCP Dr. Gutierrez. No other complaints. PFSH Past Medical History Hx Anticoagulant Therapy: Yes (ASPIRIN 81MG) Cancer: No Cardiovascular Problems: Yes High Cholesterol: Yes Cerebrovascular Accident: Yes Coronary Artery Disease: Yes Diabetes: No Diminished Hearing: No Endocrine: No Gastrointestinal Disorders: No Genitourinary: No Hypertension: Yes Immune Disorder: No Implanted Vascular Access Dvce: No Musculoskeletal: No Neurologic: Yes Psychiatric: No Reproductive: No Respiratory: No Seizures: No Past Surgical History Abdominal Surgery: Yes (appedectomy as a child) Cardiac Surgery: No Ear Surgery: No Endocrine Surgery: No Eye Surgery: No Genitourinary Surgery: No Gynecologic Surgery: No Neurologic Surgery: Yes (burrhole March 2016, subdural hemmorhage) Oral Surgery: No Thoracic Surgery: No Other Surgery: Yes Social History Alcohol Use: Yes Tobacco Use: Yes Substance Use: No Allergies-Medications (Allergen,Severity, Reaction): Coded Allergies: No Known Allergies (Verified , 11/26/16) Reported Meds & Prescriptions Reported Meds & Active Scripts Active Clindamycin (Clindamycin HCl) 300 Mg Cap 300 Mg PO Q6H 10 Days Aspirin EC (Aspirin) 81 Mg Tabdr 81 Mg PO DAILY Claritin (Loratadine) 10 Mg Tab 10 Mg PO DAILY Hydroxyzine Pamoate 50 Mg Cap 50 Mg PO Q8H PRN Lotrisone Topical (Betamethasone/Clotrimazole) 1-0.05% Cream 1 Applic TOPICAL Q12HR Reported Flonase Nasal [place] (Fluticasone Nasal [place]) 50 Mcg/Act [place] 1 [place] EACH NARE HS Fosinopril-Hydrochlorothiazide 10-12.5 Mg Tab 1 Tab PO DAILY Vitamin D (Cholecalciferol) 1,000 Unit Tab 1,000 Units PO DAILY Vitamin B-12 (Cyanocobalamin) 1,000 Mcg Subl 1,000 Mcg SL DAILY Zocor (Simvastatin) 20 Mg Tab 20 Mg PO HS Cilostazol 50 Mg Tab 50 Mg PO BID Omeprazole 20 Mg Tab 20 Mg PO DAILY Review of Systems Except as stated in HPI: all other systems reviewed are Neg Physical Exam Narrative GENERAL: Well-nourished and well-developed pleasant elderly male patient in no acute distress who is nontoxic appearing. SKIN: Warm and dry. HEAD: Normocephalic and atraumatic. EYES: No injection, drainage, or hyphema noted. PERRLA. EOMI. ENT: No nasal drainage noted. Oropharynx is clear. NECK: Supple and the trachea is midline. CARDIOVASCULAR: Regular rate and rhythm. RESPIRATORY: Breath sounds are equal bilaterally with no accessory muscle use, wheezing, rhonchi, or crackles. GASTROINTESTINAL: Abdomen is soft, non-tender, and nondistended. MUSCULOSKELETAL: Plantar aspect of left foot underlying first through third metatarsals with swelling, erythema and tenderness to palpation. There is an area of skin that appears to have been removed through procedure, dated 11/26 by the low emission automobile designer. The soft tissue of lateral and medial ankle of the left foot is slightly swollen as well. No calf tenderness. DP pulses are 2+ bilaterally. Capillary refill is within normal limits. Sensation is intact. No obvious deformities, cyanosis, or ecchymosis is present throughout the upper and lower extremities. Patient has full range of motion without any signs of neurovascular compromise. NEUROLOGICAL: Awake, alert, and oriented. Normal speech and gait. Cranial nerves are grossly intact. Data Data Last Documented VS Vital Signs Date Time Temp Pulse Resp B/P Pulse Ox O2 Delivery O2 Flow Rate FiO2 11/26/16 12:01 98.3 87 16 137/83 98 Room Air Orders Complete Blood Count With Diff (11/26/16 11:55) Comprehensive Metabolic Panel (11/26/16 11:55) Lactic Acid Sepsis Protocol (11/26/16 11:55) Blood Culture (11/26/16 11:55) Wound Culture And Gram Stain (11/26/16 11:55) Blood Glucose (11/26/16 11:55) Ecg Monitoring (11/26/16 11:55) Iv Access Insert/Monitor (11/26/16 11:55) Oximetry (11/26/16 11:55) Westergren Sedimentation Rate (11/26/16 11:55) C-Reactive Protein (Crp) (11/26/16 11:55) Sodium Chlor 0.9% 1000 Ml Inj (Ns 1000 M (11/26/16 11:55) Mri Foot W&W/O Contrast (11/26/16 ) Arterial Segmt Dopp Ltd Fannie (11/26/16 ) Consult Podiatry (11/26/16 ) Vancomycin Inj (Vancomycin Inj) (11/26/16 13:00) (Hub Use Only)Inp Phy Cons/Ref (11/26/16 ) Piperacil-Tazo 4.5 Gm Premix (Zosyn 4.5 (11/26/16 13:00) Admit Order (Ed Use Only) (11/26/16 13:51) Admit To Inpatient (11/26/16 ) Vital Signs (Adult) Q4H (11/26/16 13:50) Activity Oob With Assistance (11/26/16 13:50) Diet Heart Healthy (11/26/16 Lunch) Sodium Chlor 0.45% 1000 Ml Inj (1/2 Ns 1 (11/26/16 14:00) Sodium Chloride 0.9% Flush (Ns Flush) (11/26/16 14:00) Sodium Chloride 0.9% Flush (Ns Flush) (11/26/16 21:00) Ondansetron Inj (Zofran Inj) (11/26/16 14:00) Enoxaparin Inj (Lovenox Inj) (11/26/16 14:00) Naloxone Inj (Narcan Inj) (11/26/16 14:00) Inpatient Certification (11/26/16 ) Vancomycin Consult Pharmacy (Vancomycin (11/26/16 14:00) Heparin Inj (Heparin Inj) (11/26/16 21:00) Labs Laboratory Tests Test 11/26/16 12:05 White Blood Count 9.6 TH/MM3 Red Blood Count 4.92 MIL/MM3 Hemoglobin 14.4 GM/DL Hematocrit 42.2 % Mean Corpuscular Volume 85.8 FL Mean Corpuscular Hemoglobin 29.4 PG Mean Corpuscular Hemoglobin 34.2 % Concent Red Cell Distribution Width 13.7 % Platelet Count 291 TH/MM3 Mean Platelet Volume 7.9 FL Neutrophils (%) (Auto) 73.3 % Lymphocytes (%) (Auto) 16.0 % Monocytes (%) (Auto) 7.3 % Eosinophils (%) (Auto) 2.0 % Basophils (%) (Auto) 1.4 % Neutrophils # (Auto) 7.0 TH/MM3 Lymphocytes # (Auto) 1.5 TH/MM3 Monocytes # (Auto) 0.7 TH/MM3 Eosinophils # (Auto) 0.2 TH/MM3 Basophils # (Auto) 0.1 TH/MM3 CBC Comment DIFF FINAL Differential Comment Erythrocyte Sedimentation Rate 25 mm/hr Sodium Level 138 MEQ/L Potassium Level 4.3 MEQ/L Chloride Level 103 MEQ/L Carbon Dioxide Level 26.0 MEQ/L Anion Gap 9 MEQ/L Blood Urea Nitrogen 38 MG/DL Creatinine 1.53 MG/DL Estimat Glomerular Filtration 44 ML/MIN Rate Random Glucose 114 MG/DL Lactic Acid Level 1.5 mmol/L Calcium Level 9.6 MG/DL Total Bilirubin 0.4 MG/DL Aspartate Amino Transf 16 U/L (AST/SGOT) Alanine Aminotransferase 22 U/L (ALT/SGPT) Alkaline Phosphatase 67 U/L C-Reactive Protein 1.60 MG/DL Total Protein 7.7 GM/DL Albumin 3.4 GM/DL [facility] Medical Decision Making Medical Screen Exam Complete: Yes Emergency Medical Condition: Yes Differential Diagnosis Abscess versus cellulitis versus osteomyelitis versus sepsis Narrative Course 81-year-old male presents to the emergency department for evaluation of wound to plantar aspect of left foot. Patient is afebrile, vital signs are stable. Patient was sent here by his low emission automobile designer Dr. Julio is on the office today. He sent orders and with him asking for labs and an MRI of the left foot to rule out abscess. Requesting vancomycin and Zosyn be administered. Also requesting Dr. Skinner be consult. CBC is unremarkable. Sedimentation rate is elevated at 25. CRP is elevated at 1.6. CMP shows mild renal insufficiency with a creatinine of 1.53, BUN 38, GFR 44. This consistent with previous lab values. Lactic acid is 1.5. XR of the left foot performed yesterday shows soft tissue swelling, otherwise unremarkable. Patient has remained stable and without complaint while here in the ED. He has been administered 1 g IV vancomycin and 4.5 g Zosyn. He will be admitted to the medicine service with podiatry consultation. I discussed the case with my attending physician Dr. Mcgraw who is aware of the patients history, physical examination findings, and treatment plan. Physician Communication Physician Communication I spoke with Dr. Skinner low emission automobile designer who agrees to consult on the patient. I spoke with Dr. Walton [facility] who agrees to admit the patient to her service. Diagnosis Primary Impression: Foot abscess, left Admitting Information Admitting Physician Requests: Admit Katarina Grubbs Nov 26, 2016 11:58
[2016-11-26 12:01] VITALS: BP 137/83; PULSE 87; RESP 16; TEMP 98.3; O2SAT 98
[2016-11-26 12:37] LABS: BASOPHIL # 0.1 TH/MM3 (0-0.2); BASOPHIL % 1.4 % (0.0-2.0); EOSINOPHIL # 0.2 TH/MM3 (0-0.4); HEMATOCRIT 42.2 % (39.0-51.0); HEMO FLAGS DIFF FINAL; LYMPHOCYTE # 1.5 TH/MM3 (1.0-4.8); MEAN CELL VOLUME 85.8 FL (80.0-100.0); MEAN CORPUSCULAR HEMOGLOBIN 29.4 PG (27.0-34.0); MEAN CORPUSCULAR HGB CONC 34.2 % (32.0-36.0); MONO % 7.3 % (0.0-8.0); NEUT % 73.3 % (16.0-70.0); PLATELET COUNT 291 TH/MM3 (150-450); RED BLOOD COUNT 4.92 MIL/MM3 (4.50-5.90); RED CELL DISTRIBUTION WIDTH 13.7 % (11.6-17.2); WHITE BLOOD COUNT 9.6 TH/MM3 (4.0-11.0)
[2016-11-26 12:52] LABS: ANION GAP 9 MEQ/L (5-15); AST (GOT) 16 U/L (15-37); BLOOD UREA NITROGEN 38 MG/DL (7-18); CHLORIDE 103 MEQ/L (98-107); GLOMERULAR FILTRATION RATE 44 ML/MIN (>89); POTASSIUM 4.3 MEQ/L (3.5-5.1); SODIUM (NA) 138 MEQ/L (136-145)
[2016-11-26 12:56] LABS: ALKALINE PHOSPHATASE 67 U/L (45-117); ALT (GPT) 22 U/L (12-78); TOTAL BILIRUBIN ADULT 0.4 MG/DL (0.2-1.0)
[2016-11-26] MEDS ORDERED: PIPERACIL-TAZO 4.5 GM PREMIX 100 ML IV ONE (13:00)
[2016-11-26] MEDS ORDERED: VANCOMYCIN INJ 1,000 MG in SODIUM CHLOR 0.9% 250 ML INJ 250 ML IV ONE (13:00)
[2016-11-26] MEDS ORDERED: NALOXONE HCL 0.4 MG/ML AMP IV PRN (14:00)
[2016-11-26] MEDS ORDERED: Vancomycin Consult Pharmacy 1 EA OTHER SCH (14:00)
[2016-11-26] MEDS ORDERED: SODIUM CHLORIDE 0.9% FLUSH 10 ML FLUSH IV FLUSH PRN (14:00)
[2016-11-26] MEDS ORDERED: ENOXAPARIN SODIUM 40 MG/0.4 ML SYRINGE SQ SCH (14:00)
[2016-11-26] MEDS ORDERED: ONDANSETRON HCL 4 MG/2 ML VIAL IVP PRN (14:00)
[2016-11-26] MEDS ORDERED: FLUCONAZOLE 200 MG TAB PO ONE (14:15)
--- NOTE | 2016-11-26 14:22 | HHI.HP ---
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 Patient stated after discharge from the hospital he went to rehabilitation center but later could not walk on his left foot secondary to pain. He stated that he was evaluated by a physician once and a physician pathologist assistant later on during his course there and was given antibiotics which was clindamycin. Patient stated the medication did not work so he was discharged. Patient stated after discharge he saw a bakery decorator and fainted so presented to emergency department in which she was discharged in order to see a bakery decorator today. The bakery decorator sent patient to the emergency department today to be started on vancomycin, Zosyn, and obtain MRI of the left foot to rule out an abscess. Student Affairs Dean also requested PERLA, sedimentation rate, CRP, and CBC. Patient stated that before his stroke he thinks he had a piece of wood in his foot and most likely that got infected. Patient also requested a cream that I gave him during last admission to be using his gluteal area. He stated that he used this during his course in the rehabilitation center and it helped him greatly with the itchiness. Otherwise he has no other complaints. His , daughter are at the bedside. Review of Systems Constitutional: DENIES: Diaphoretic episodes, Fatigue, Fever, Weight gain, Weight loss, Chills, Dizziness, Change in appetite, Night Sweats Endocrine: DENIES: Heat/cold intolerance, Polydipsia, Polyuria, Polyphagia Eyes: DENIES: Blurred vision, Diplopia, Eye inflammation, Eye pain, Vision loss , Photosensitivity, Double Vision Ears, nose, mouth, throat: DENIES: Tinnitus, Hearing loss, Vertigo, Nasal discharge, Oral lesions, Throat pain, Hoarseness, Ear Pain, Running Nose, Epistaxis, Sinus Pain, Toothache, Odynophagia Respiratory: DENIES: Apneas, Cough, Snoring, Wheezing, Hemoptysis, Sputum production, Shortness of breath Cardiovascular: DENIES: Chest pain, Palpitations, Syncope, Dyspnea on Exertion , PND, Lower Extremity Edema, Orthopnea, Claudication Gastrointestinal: DENIES: Abdominal pain, Black stools, Bloody stools, Constipation, Diarrhea, Nausea, Vomiting, Difficulty Swallowing, Anorexia Genitourinary: DENIES: Sexual dysfunction, Urinary frequency, Urinary incontinence, Urgency, Hematuria, Dysuria, Nocturia, Penile Discharge, Testicular Pain, Testicular Swelling Musculoskeletal: DENIES: Joint pain, Muscle aches, Stiffness, Joint Swelling, Back pain, Neck pain Hematologic/lymphatic: DENIES: Bruising, Lymphadenopathy Immunologic/allergic: COMPLAINS OF: Urticaria Neurologic: DENIES: Abnormal gait, Headache, Localized weakness, Paresthesias, Seizures, Speech Problems, Tremor, Poor Balance Psychiatric: DENIES: Anxiety, Confusion, Mood changes, Depression, Hallucinations, Agitation, Suicidal Ideation, Homicidal Ideation, Delusions Left foot pain Past Family Social History Past Medical History Hyperlipidemia Hypertension History 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 Questionable mild dementia 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 Past Surgical History [place] hole placement in March 2016 Reported Medications Reported Meds & Active Scripts Active Clindamycin (Clindamycin HCl) 300 Mg Cap 300 Mg PO Q6H 10 Days Aspirin EC (Aspirin) 81 Mg Tabdr 81 Mg PO DAILY Claritin (Loratadine) 10 Mg Tab 10 Mg PO DAILY Hydroxyzine Pamoate 50 Mg Cap 50 Mg PO Q8H PRN Lotrisone Topical (Betamethasone/Clotrimazole) 1-0.05% Cream 1 Applic TOPICAL Q12HR Reported Flonase Nasal [place] (Fluticasone Nasal [place]) 50 Mcg/Act [place] 1 [place] EACH NARE HS Fosinopril-Hydrochlorothiazide 10-12.5 Mg Tab 1 Tab PO DAILY Vitamin D (Cholecalciferol) 1,000 Unit Tab 1,000 Units PO DAILY Vitamin B-12 (Cyanocobalamin) 1,000 Mcg Subl 1,000 Mcg SL DAILY Zocor (Simvastatin) 20 Mg Tab 20 Mg PO HS Cilostazol 50 Mg Tab 50 Mg PO BID Omeprazole 20 Mg Tab 20 Mg PO DAILY Allergies: Coded Allergies: No Known Allergies (Verified , 4/25/17) Active Ordered Medications Current Medications Sodium Chloride 1,000 ml @ 1,000 mls/hr Q1H IV Last administered on 11/26/16 12:25; Start 11/26/16 at 11:55; Stop 11/26/16 at 12:54; Status DC Vancomycin HCl 1000 mg/Sodium Chloride 250 ml @ 250 mls/hr ONCE ONCE IV Last administered on 11/26/16 13:26; Start 11/26/16 at 13:00; Stop 11/26/16 at 13:59 ; Status DC Piperacillin Sod/ Tazobactam Sod 100 ml @ 200 mls/hr ONCE ONCE IV Last administered on 11/26/16 13:20; Start 11/26/16 at 13:00; Stop 11/26/16 at 13:29 ; Status DC Sodium Chloride (1/2 NS 1000 ml Inj) 1,000 ml @ 75 mls/hr [id number] IV ; Start at 14:00 Sodium Chloride (NS Flush) 2 ml UNSCH PRN IV FLUSH FLUSH AFTER USING IV ACCESS ; Start 11/26/16 at 14:00 Sodium Chloride (NS Flush) 2 ml BID IV FLUSH ; Start 11/26/16 at 21:00 Ondansetron HCl (Zofran Inj) 4 mg Q6H PRN IVP NAUSEA OR VOMITING; Start at 14:00 Enoxaparin Sodium (Lovenox Inj) 40 mg Q24H SQ ; Start 11/26/16 at 14:00; Stop at 14:00; Status DC Naloxone HCl 0.4 mg 0.4 mg UNSCH PRN IV SEE LABEL COMMENTS; Start 11/26/16 at 14:00 Pharmacy Profile Note (Vancomycin Consult Pharmacy) 0 ml @ 0 mls/hr UNSCH OTHER ; Start 11/26/16 at 14:00 Heparin Sodium (Porcine) (Heparin Inj) 5,000 units Q12HR SQ ; Start 11/26/16 at 21:00 Fluconazole (Diflucan) 200 mg ONCE ONCE PO ; Start 11/26/16 at 14:15; Stop at 14:16; Status DC Betamethasone/ Clotrimazole (Lotrisone Cream) 1 applic Q12HR TOPICAL ; Start at 14:15 Aspirin (Ecotrin Ec) 81 mg DAILY PO ; Start 11/27/16 at 09:00 Cholecalciferol (Vitamin D3) 1,000 units DAILY PO ; Start 11/27/16 at 09:00 Cilostazol (Pletal) 50 mg BID PO ; Start 11/26/16 at 21:00 Cyanocobalamin (Vitamin B12) 1,000 mcg DAILY PO ; Start 11/27/16 at 09:00 Hydroxyzine Pamoate (Vistaril) 50 mg Q8H PRN PO ITCHING; Start 11/26/16 at 14: 15 Loratadine (Claritin) 10 mg DAILY PO ; Start 11/27/16 at 09:00 Non-Formulary Medication 1 tab DAILY PO ; Start 11/27/16 at 09:00; Status UNV Pantoprazole Sodium (Protonix) 20 mg DAILY PO ; Start 11/27/16 at 09:00 Pravastatin Sodium (Pravachol) 40 mg HS PO CM; Start 11/26/16 at 21:00 Fluticasone Propionate 1 spray 1 spray BID NASAL ; Start 11/26/16 at 21:00 Piperacillin Sod/ Tazobactam Sod (Zosyn 3.375 Gm Premix) 50 ml @ 100 mls/hr Q6H IV ; Start 11/26/16 at 20:00 Family History Patient stated brother has a history of diabetes otherwise family members are relatively healthy. Social History Denying tobacco or illicit drug use. Drinks a couple beers every week. Physical Exam Vital Signs Vital Signs Date Time Temp Pulse Resp B/P Pulse Ox O2 Delivery O2 Flow Rate FiO2 11/26/16 12:01 98.3 87 16 137/83 98 Room Air 11/26/16 11:55 86 14 11/26/16 11:27 97.8 85 16 109/68 96 Physical Exam GENERAL: This is a well-nourished, well-developed patient, in no apparent distress. SKIN: No rashes, ecchymoses or lesions. Cool and dry. HEAD: Atraumatic. Normocephalic. No temporal or scalp tenderness. EYES: Pupils equal round and reactive. Extraocular motions intact. No scleral icterus. No injection or drainage. ENT: Nose without bleeding, purulent drainage or septal hematoma. Throat without erythema, tonsillar hypertrophy or exudate. Uvula midline. Airway patent. NECK: Trachea midline. No JVD or lymphadenopathy. Supple, nontender, no meningeal signs. CARDIOVASCULAR: Regular rate and rhythm without murmurs, gallops, or rubs. RESPIRATORY: Clear to auscultation. Breath sounds equal bilaterally. No wheezes , rales, or rhonchi. GASTROINTESTINAL: Abdomen soft, non-tender, nondistended. No hepato-splenomegaly , or palpable masses. No guarding. MUSCULOSKELETAL: Left foot base + erythema. + TTP at at the base of foot. Negative Homans sign bilaterally. NEUROLOGICAL: Awake and alert. Cranial nerves II through XII intact. Motor and sensory grossly within normal limits. Five out of 5 muscle strength in all muscle groups. Normal speech. Laboratory Laboratory Tests Test 11/26/16 12:05 White Blood Count 9.6 Red Blood Count 4.92 Hemoglobin 14.4 Hematocrit 42.2 Mean Corpuscular Volume 85.8 Mean Corpuscular Hemoglobin 29.4 Mean Corpuscular Hemoglobin 34.2 Concent Red Cell Distribution Width 13.7 Platelet Count 291 Mean Platelet Volume 7.9 Neutrophils (%) (Auto) 73.3 Lymphocytes (%) (Auto) 16.0 Monocytes (%) (Auto) 7.3 Eosinophils (%) (Auto) 2.0 Basophils (%) (Auto) 1.4 Neutrophils # (Auto) 7.0 Lymphocytes # (Auto) 1.5 Monocytes # (Auto) 0.7 Eosinophils # (Auto) 0.2 Basophils # (Auto) 0.1 CBC Comment DIFF FINAL Differential Comment Erythrocyte Sedimentation Rate 25 Sodium Level 138 Potassium Level 4.3 Chloride Level 103 Carbon Dioxide Level 26.0 Anion Gap 9 Blood Urea Nitrogen 38 Creatinine 1.53 Estimat Glomerular Filtration 44 Rate Random Glucose 114 Lactic Acid Level 1.5 Calcium Level 9.6 Total Bilirubin 0.4 Aspartate Amino Transf 16 (AST/SGOT) Alanine Aminotransferase 22 (ALT/SGPT) Alkaline Phosphatase 67 C-Reactive Protein 1.60 Total Protein 7.7 Albumin 3.4 Date/Time Procedure Status Source Growth 11/26/16 12:20 Gram Stain Received Wound Foot Pending 11/26/16 12:20 Wound Culture Received Wound Foot Pending 11/26/16 12:20 Aerobic Blood Culture Received Blood Peripheral Pending 11/26/16 12:20 Anaerobic Blood Culture Received Blood Peripheral Pending Result Diagram: 11/26/16 1205 11/26/16 1205 Assessment and Plan Assessment and Plan 81-year-old male with history of recent infarct of the high left parietal cortex , hypertension and hyperlipidemia who presented with left foot infection Left foot infection -Questionable abscess or osteomyelitis. -Per bakery decorator requested MRI of the left foot, PERLA, sedimentation rate, CRP, CBC. Orders placed by the ER physician. -CBC within normal limits, CRP and sed rate mildly elevated. -Per bakery decorator request to put patient on Zosyn and vancomycin. Will need to be cautious with IV medication since patient is presenting with acute on chronic renal insufficiency. -Consult for bakery decorator Dr. Skinner already placed. -We'll also consult infectious disease. Subacute left parietal cortex infarct/old lacunar infarct -Continue with home medication including aspirin, statin, antihypertensive medication. Acute on chronic renal insufficiency -Baseline GFR 52 with creatinine 1.32. Patient now has a GFR 44 with a creatinine 1.53. -Most likely secondary to dehydration. Will give IV fluids. -Strict ins and outs. -Avoid nephrotoxins. Hypertension/hyperlipidemia -Resume home medication. Tinea corpora/tinea pedis -continue with betamethasone/clotrimazole cream since this is working for patient. -will also give 1 dose of Diflucan due to the rash in the gluteal area. DVT prophylaxis -Heparin renally dose. Discussed Condition With patient Physician Certification 2 Midnight Certification Type: Admission for Inpatient Services Order for Inpatient Services The services are ordered in accordance with Medicare regulations or non- Medicare payer requirements, as applicable. In the case of services not specified as inpatient-only, they are appropriately provided as inpatient services in accordance with the 2-midnight benchmark. Estimated LOS (days): 3 3 days is the estimated time the patient will need to remain in the hospital, assuming treatment plan goals are met and no additional complications. Post-Hospital Plan: Home Health Angela Walton MD Nov 26, 2016 14:22
[2016-11-26 16:20] VITALS: BP 104/57; PULSE 74; RESP 16; O2SAT 97
[2016-11-26] MEDS: SODIUM CHLOR 0.45% 1000 ML INJ 1,000 ML IV SCH (16:23)
--- NOTE | 2016-11-26 16:25 | RADRPT ---
EXAM DATE/TIME: 11/26/2016 00:00 [facility] COMPARISON: No previous studies available for comparison. INDICATIONS : Left foot pain TECHNIQUE: Four-cuff ankle and brachial pressures were obtained. Pulse cuff waveform tracings of the ankles were recorded, and ankle-brachial indices were calculated. PRESSURES (mmHg): Brachial (arm): Right IV SITE Left 105 Ankle: Right 135 Left 122 PERLA: Right 1.29 Left 1.16 TBI: Right 0.00 Left 1.09 PULSED CUFF WAVEFORMS: Amplitude blunting of the right ankle waveforms. No significant waveform identified in the right toe CONCLUSION: 1. Amplitude blunting in the right ankle with absent waveform in the right toe. 2. However, ABIs are normal bilaterally. 3. Waveforms and ABIs are normal in the symptomatic left lower extremity. Julian Morales MD on November 26, 2016 at 16:21 Board Certified Radiologist. This report was verified electronically.
[2016-11-26] MEDS: BETAMETHASONE/CLOTRIMAZOLE CREAM 15 GM TOPICAL SCH ×2 (16:27→21:28)
[2016-11-26] MEDS ORDERED: LOTR1CRE TOPICAL ×2 (16:28)
[2016-11-26] MEDS ORDERED: LEVA500T PO (16:34)
[2016-11-26] MEDS ORDERED: DIPH50TA3 PO ×2 (16:40)
[2016-11-26] MEDS ORDERED: FLEEENE3 RECTAL ×2 (16:47)
[2016-11-26] MEDS ORDERED: MAGNSOL2 PO ×2 (16:47)
[2016-11-26] MEDS ORDERED: DULC10SU3 RECTAL ×2 (16:47)
[2016-11-26] MEDS ORDERED: MILKSUS PO ×2 (16:47)
[2016-11-26 20:00] VITALS: BP 113/59; PULSE 76; RESP 16; TEMP 97.5; O2SAT 98
--- NOTE | 2016-11-26 20:38 | MB ---
cc: TOSIN SKINNER DPM DATE OF CONSULTATION 11/26/2016 TIME OF CONSULTATION 1600 hours DATE OF 1935 REASON FOR CONSULTATION Left foot infection. HISTORY OF PRESENT ILLNESS The patient is an 81-year-old male with past medical history of hypertension, hyperlipidemia, possible dementia. He was seen by my partner Dr. Kim on 11/26/2016 in the office after he was discharged from the ED on 11/26/2016 and referred to podiatry. He states that while in the ED on 11/26/2016 a small incision was made on his foot. After discussion my partner Dr. Kim he noted that he likely removed a small piece of foreign body likely a piece of wood from the foot and directed the patient to the ED for admission including MRI, lower extremity vascular workup and IV antibiotics. REVIEW OF SYSTEMS A six point review of systems, denies fatigue, fever, weight gain, chills, nausea, vomiting, night sweats. PAST MEDICAL HISTORY 1. Hyperlipidemia. 2. Hypertension. 3. Possible subdural hematoma. 4. 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 5. Cortical infarct left parietal cortex. 6. Old lacunar infarct. PAST SURGICAL HISTORY Bur hold placement 2015. MEDICATIONS Active medications: 1. Clindamycin. 2. ASA. 3. Claritin. 4. Hydroxyzine pamoate. 5. Lotrisone topical. PHYSICAL EXAMINATION EXTREMITIES: On the lower extremity DP palpable and nonpalpable PT on the left side. There is an incision from excision of a foreign body in the left sub second and third metatarsals. There is no purulence noted. In the medial arch there is an area that is well demarcated with erythema. There is no fluctuance noted there. Muscle strength was +5/5 in all quadrants. Protective sensation grossly absent. LABORATORY DATA WBC on 11/27/2015 9.6, RBC 4.92. H&H 14.4 and 42.2. Platelets 291 and ESR 25. IMAGING His blood flow completed 11/26/2016 indicates blunting at the right ankle and absent waveform in the right toe. Normal ABIs bilaterally and especially in the symptomatic left lower extremity. This was evaluated Dr. Morales on November 26, 2016. ASSESSMENT/PLAN 1. Left foot cellulitis. 2. Status post left foot I&D. PLAN This patient is to get an MRI on the left foot to evaluate any foreign bodies or abscess. Continue IV antibiotics while in-house. Normalized ABIs noted. We will continue to follow the patient while in-house. Tosin Skinner DPM SR/BRISEIDA /7:29 PM /8:24 PM
--- NOTE | 2016-11-26 20:44 | RADRPT ---
EXAM DATE/TIME: 11/26/2016 19:25 [facility] COMPARISON: FOOT LEFT COMPLETE ([id number]), November 25, 2016, 12:39. INDICATIONS : Osteomyelitis. Open wound on plantar surface of left foot. CONTRAST: 19 cc Omniscan (gadodiamide) IV MEDICAL HISTORY : Hypertension. SURGICAL HISTORY : Umbilical hernia repair. Blood clot removal from brain. ENCOUNTER: Subsequent ACUITY: 2 months PAIN SCORE: 0/10 LOCATION: Left foot. TECHNIQUE: Multiplanar, multisequence MRI examination was performed without contrast and after the intravenous a dministration of gadolinium. FINDINGS: BONE/CARTILAGE: Bone marrow signal is homogeneous. There are some cystic changes involving the medial cuneiform and t o a lesser degree space of the first metatarsal. No osteomyelitis. Articular cartilage signal is with in normal limits. TENDONS: All of the visualized tendons are intact. MISCELLANEOUS: Plantar aponeurosis is intact. Sinus tarsi is within normal limits. POST-CONTRAST: There is enhancement of the superficial soft tissues consistent with cellulitis. CONCLUSION: No evidence for osteomyelitis. Diffuse cellulitic changes. Ceasar Castle MD on November 26, 2016 at 20:36 Board Certified Radiologist. This report was verified electronically.
[2016-11-26] MEDS ORDERED: GADODIAMIDE PF 287 MG/ML 5 ML VIAL (for RAD MRI) IV ONE (21:04)
[2016-11-26] MEDS: HEPARIN SODIUM - SQ 10,000 UNITS/ML VIAL SQ SCH (21:27)
[2016-11-26] MEDS: PRAVASTATIN SOD 40 MG TAB PO SCH (21:27)
[2016-11-26] MEDS: CILOSTAZOL 50 MG TAB PO SCH (21:28)
[2016-11-26] MEDS: FLUTICASONE PROPIONATE 50 MCG/ACT 16 GM NASAL SPRAY NASAL SCH (21:28)
[2016-11-26] MEDS: PIPERACIL-TAZO 3.375 GM PREMIX 50 ML IV SCH (21:28)
[2016-11-26] MEDS: SODIUM CHLORIDE 0.9% FLUSH 10 ML FLUSH IV FLUSH SCH (21:38)
[2016-11-27] VITALS: BP 101/55; PULSE 74; RESP 18; TEMP 97.8; O2SAT 97
[2016-11-27] MEDS: PIPERACIL-TAZO 3.375 GM PREMIX 50 ML IV SCH ×2 (03:22→09:11)
[2016-11-27] MEDS: SODIUM CHLOR 0.45% 1000 ML INJ 1,000 ML IV SCH ×2 (03:22→16:40)
[2016-11-27] MEDS: VANCOMYCIN INJ 1,500 MG in SODIUM CHLORID 0.9% 500 ML INJ 500 ML IV SCH ×2 (03:23→06:06)
[2016-11-27 08:00] VITALS: BP 108/64; PULSE 77; RESP 16; TEMP 97.5; O2SAT 95
[2016-11-27] MEDS: SODIUM CHLORIDE 0.9% FLUSH 10 ML FLUSH IV FLUSH SCH ×2 (09:00→19:58)
[2016-11-27] MEDS ORDERED: [UNRECOGNIZED DRUG - OTHER] PO SCH (09:00)
[2016-11-27] MEDS: HYDROCHLOROTHIAZIDE 25 MG TAB PO SCH (09:04)
[2016-11-27] MEDS: PANTOPRAZOLE SOD 20 MG DELAYED RELEASE TAB PO SCH (09:04)
[2016-11-27] MEDS: ASPIRIN EC 81 MG TABEC PO SCH (09:04)
[2016-11-27] MEDS: CILOSTAZOL 50 MG TAB PO SCH ×2 (09:05→19:58)
[2016-11-27] MEDS: LISINOPRIL 10 MG TAB PO SCH (09:05)
[2016-11-27] MEDS: CHOLECALCIFEROL (VIT D3) 1000 UNIT TAB PO SCH (09:05)
[2016-11-27] MEDS: HEPARIN SODIUM - SQ 10,000 UNITS/ML VIAL SQ SCH ×2 (09:05→19:57)
[2016-11-27] MEDS: FLUTICASONE PROPIONATE 50 MCG/ACT 16 GM NASAL SPRAY NASAL SCH ×2 (09:05→19:57)
[2016-11-27] MEDS: CYANOCOBALAMIN 1,000 MCG TAB PO SCH (09:05)
[2016-11-27] MEDS: LORATADINE 10 MG TAB PO SCH (09:05)
--- NOTE | 2016-11-27 09:05 | HHI.PR ---
Subjective Remarks Follow-up for foot infection Patient stated that he feels a lot better today. Pain has improved. Patient remains afebrile. Patient asking when he is discharged that I will give him prescription for the cream. Objective Vitals Vital Signs Date Time Temp Pulse Resp B/P Pulse Ox O2 Delivery O2 Flow Rate FiO2 11/27/16 08:00 97.5 77 16 108/64 95 11/27/16 00:00 97.8 74 18 101/55 97 11/26/16 20:00 97.5 76 16 113/59 98 11/26/16 16:20 74 16 104/57 97 Room Air 11/26/16 12:01 98.3 87 16 137/83 98 Room Air 11/26/16 11:55 86 14 11/26/16 11:27 97.8 85 16 109/68 96 I/O 11/26/16 11/26/16 11/26/16 11/27/16 11/27/16 11/27/16 07:00 15:00 23:00 07:00 15:00 23:00 Intake Total 545 ml Output Total 620 ml Balance -75 ml Intake Oral 240 ml IV Total 305 ml Output Urine Total 620 ml # Bowel Movements 0 Result Diagram: 11/26/16 1205 11/26/16 1205 Objective Remarks GENERAL: in NAD SKIN: erythema in the gluteal area and fold. HEAD: Normocephalic. EYES: No scleral icterus. No injection or drainage. NECK: Supple, trachea midline. No JVD or lymphadenopathy. CARDIOVASCULAR: Regular rate and rhythm without murmurs, gallops, or rubs. RESPIRATORY: Breath sounds equal bilaterally. No accessory muscle use. GASTROINTESTINAL: Abdomen soft, non-tender, nondistended. Left foot: sole of foot shows improvement of erythema s/p I&D. Medications and IVs Current Medications Sodium Chloride 1,000 ml @ 1,000 mls/hr Q1H IV Last administered on 11/26/16 12:25; Start 11/26/16 at 11:55; Stop 11/26/16 at 12:54; Status DC Vancomycin HCl 1000 mg/Sodium Chloride 250 ml @ 250 mls/hr ONCE ONCE IV Last administered on 11/26/16 13:26; Start 11/26/16 at 13:00; Stop 11/26/16 at 13:59 ; Status DC Piperacillin Sod/ Tazobactam Sod 100 ml @ 200 mls/hr ONCE ONCE IV Last administered on 11/26/16 13:20; Start 11/26/16 at 13:00; Stop 11/26/16 at 13:29 ; Status DC Sodium Chloride (1/2 NS 1000 ml Inj) 1,000 ml @ 75 mls/hr [id number] IV Last administered on 11/27/16 03:22; Start 11/26/16 at 14:00 Sodium Chloride (NS Flush) 2 ml UNSCH PRN IV FLUSH FLUSH AFTER USING IV ACCESS ; Start 11/26/16 at 14:00 Sodium Chloride (NS Flush) 2 ml BID IV FLUSH Last administered on 11/26/16 21: 38; Start 11/26/16 at 21:00 Ondansetron HCl (Zofran Inj) 4 mg Q6H PRN IVP NAUSEA OR VOMITING; Start at 14:00 Enoxaparin Sodium (Lovenox Inj) 40 mg Q24H SQ ; Start 11/26/16 at 14:00; Stop at 14:00; Status DC Naloxone HCl 0.4 mg 0.4 mg UNSCH PRN IV SEE LABEL COMMENTS; Start 11/26/16 at 14:00 Pharmacy Profile Note (Vancomycin Consult Pharmacy) 0 ml @ 0 mls/hr UNSCH OTHER ; Start 11/26/16 at 14:00 Heparin Sodium (Porcine) (Heparin Inj) 5,000 units Q12HR SQ Last administered on 11/26/16 21:27; Start 11/26/16 at 21:00 Fluconazole (Diflucan) 200 mg ONCE ONCE PO Last administered on 11/26/16 16: 27; Start 11/26/16 at 14:15; Stop 11/26/16 at 14:16; Status DC Betamethasone/ Clotrimazole (Lotrisone Cream) 1 applic Q12HR TOPICAL Last administered on 11/26/16 21:28; Start 11/26/16 at 14:15 Aspirin (Ecotrin Ec) 81 mg DAILY PO ; Start 11/27/16 at 09:00 Cholecalciferol (Vitamin D3) 1,000 units DAILY PO ; Start 11/27/16 at 09:00 Cilostazol (Pletal) 50 mg BID PO Last administered on 11/26/16 21:28; Start at 21:00 Cyanocobalamin (Vitamin B12) 1,000 mcg DAILY PO ; Start 11/27/16 at 09:00 Hydroxyzine Pamoate (Vistaril) 50 mg Q8H PRN PO ITCHING Last administered on 14:55; Start 11/26/16 at 14:15 Loratadine (Claritin) 10 mg DAILY PO ; Start 11/27/16 at 09:00 Non-Formulary Medication 1 tab DAILY PO ; Start 11/27/16 at 09:00; Stop at 09:00; Status DC Pantoprazole Sodium (Protonix) 20 mg DAILY PO ; Start 11/27/16 at 09:00 Pravastatin Sodium (Pravachol) 40 mg HS PO CM Last administered on 11/26/16 21: 27; Start 11/26/16 at 21:00 Fluticasone Propionate 1 spray 1 spray BID NASAL Last administered on 21:28; Start 11/26/16 at 21:00 Piperacillin Sod/ Tazobactam Sod (Zosyn 3.375 Gm Premix) 50 ml @ 100 mls/hr Q6H IV Last administered on 11/27/16 03:22; Start 11/26/16 at 20:00 Lisinopril (Prinivil) 10 mg DAILY PO ; Start 11/27/16 at 09:00 Hydrochlorothiazide 12.5 mg 12.5 mg DAILY PO ; Start 11/27/16 at 09:00 Vancomycin HCl/ Sodium Chloride (Vancomycin Inj/ NS 500 ml Inj) 515 ml @ 250 mls/hr Q24H IV Last administered on 11/27/16 06:06; Start 11/27/16 at 06:00 Miscellaneous Information SPECIFIC LAB TO BE DRAWN:VANCOMYCIN TROUGH DATE TO... ONCE ONCE .XX ; Start 11/29/16 at 05:45; Stop 11/29/16 at 05:46 Gadodiamide (Omniscan Pf Inj) 19 ml STK-MED ONCE IV Last administered on 21:04; Start 11/26/16 at 21:04; Stop 11/26/16 at 21:05; Status DC A/P Assessment and Plan 81-year-old male with history of recent infarct of the high left parietal cortex , hypertension and hyperlipidemia who presented with left foot infection Left foot cellulitis -s/p I &D on 11/26 by Residential Green Building Designer. -Per materials planning manager request to put patient on Zosyn and vancomycin. Will need to be cautious with IV medication since patient is presenting with acute on chronic renal insufficiency. -continue antibiotics pending wound cultures. Drastic improvement today. -ID was also consulted. Subacute left parietal cortex infarct/old lacunar infarct -Continue with home medication including aspirin, statin, antihypertensive medication. Acute on chronic renal insufficiency -Baseline GFR 52 with creatinine 1.32. Patient now has a GFR 44 with a creatinine 1.53. -Most likely secondary to dehydration. Will give IV fluids. -Strict ins and outs. -Avoid nephrotoxins. -pending BMP. Hypertension/hyperlipidemia -continue home medication. Tinea corpora/tinea pedis -continue with betamethasone/clotrimazole cream since this is working for patient. -given a dose of Diflucan. will give another dose. DVT prophylaxis -Heparin renally dose. Discharge Planning most likely can probably be discharge in 1-2 days to home with home health. Angela Walton MD Nov 27, 2016 09:05
[2016-11-27] MEDS: BETAMETHASONE/CLOTRIMAZOLE CREAM 15 GM TOPICAL SCH ×2 (09:06→19:57)
[2016-11-27] MEDS ORDERED: FLUCONAZOLE 200 MG TAB PO ONE (09:30)
--- NOTE | 2016-11-27 10:19 | PD.ID.CON ---
History of Present Illness Service ID Consult Requested By Reason for Consult Evaluation and Mment of Left foot cellulitis. Primary Care Physician Brie Han Do, MD Diagnoses: History of Present Illness is an 81-year-old male PMhx of hypertension, hyperlipidemia, questionable mild dementia, and recent admission due to small acute cortical infarct of the high left parietal cortex who presented with left foot infection. Patient stated after discharge from the hospital he went to rehabilitation center but later could not walk on his left foot secondary to pain. He stated that he was evaluated by a physician once and a physician assistant property manager later on during his course there and was given antibiotics which was clindamycin. Patient stated after discharge he saw a technology applications teacher and ? fainted so presented to emergency department in which she was discharged in order to see a technology applications teacher today. The technology applications teacher sent patient to the emergency department today to be started on vancomycin, Zosyn, and obtain MRI of the left foot to rule out an abscess. Purchasing/Receiving also requested PERLA, sedimentation rate , CRP, and CBC. Patient stated that before his stroke he thinks he had a piece of wood in his foot and most likely that got infected. ECHO on 11/08/2016 was ok per my review of report. Possible prerenal etiology to the presyncope that he describes. ID consulted to help evaluate and manage left foot infection. Review of Systems Constitutional: DENIES: Diaphoretic episodes, Fatigue, Fever, Weight gain, Weight loss, Chills, Dizziness, Change in appetite, Night Sweats Endocrine: DENIES: Heat/cold intolerance, Polydipsia, Polyuria, Polyphagia Eyes: DENIES: Blurred vision, Diplopia, Eye inflammation, Eye pain, Vision loss , Photosensitivity, Double Vision Ears, nose, mouth, throat: DENIES: Tinnitus, Hearing loss, Vertigo, Nasal discharge, Oral lesions, Throat pain, Hoarseness, Ear Pain, Running Nose, Epistaxis, Sinus Pain, Toothache, Odynophagia Respiratory: DENIES: Apneas, Cough, Snoring, Wheezing, Hemoptysis, Sputum production, Shortness of breath Cardiovascular: DENIES: Chest pain, Palpitations, Syncope, Dyspnea on Exertion , PND, Lower Extremity Edema, Orthopnea, Claudication Gastrointestinal: DENIES: Abdominal pain, Black stools, Bloody stools, Constipation, Diarrhea, Nausea, Vomiting, Difficulty Swallowing, Anorexia Genitourinary: DENIES: Sexual dysfunction, Urinary frequency, Urinary incontinence, Urgency, Hematuria, Dysuria, Nocturia, Penile Discharge, Testicular Pain, Testicular Swelling Musculoskeletal: DENIES: Joint pain, Muscle aches, Stiffness, Joint Swelling, Back pain, Neck pain Integumentary: COMPLAINS OF: Abnormal pigmentation, DENIES: Nail changes, Pruritus, Rash Hematologic/lymphatic: DENIES: Bruising, Lymphadenopathy Immunologic/allergic: DENIES: Eczema, Urticaria Neurologic: DENIES: Abnormal gait, Headache, Localized weakness, Paresthesias, Seizures, Speech Problems, Tremor, Poor Balance Psychiatric: DENIES: Anxiety, Confusion, Mood changes, Depression, Hallucinations, Agitation, Suicidal Ideation, Homicidal Ideation, Delusions Except as stated in HPI: all other systems reviewed are Neg Past Family Social History Allergies: Coded Allergies: No Known Allergies (Verified , 11/26/16) Past Medical History Hyperlipidemia Hypertension History 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 Questionable mild dementia 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 Past Surgical History Luis hole placement in March 2016 Reported Medications Reported Meds & Active Scripts Active Clindamycin (Clindamycin HCl) 300 Mg Cap 300 Mg PO Q6H 10 Days Aspirin EC (Aspirin) 81 Mg Tabdr 81 Mg PO DAILY Claritin (Loratadine) 10 Mg Tab 10 Mg PO DAILY Hydroxyzine Pamoate 50 Mg Cap 50 Mg PO Q8H PRN Lotrisone Topical (Betamethasone/Clotrimazole) 1-0.05% Cream 1 Applic TOPICAL Q12HR Reported Milk of Magnesia Liq (Magnesium Hydroxide) 400 Mg/5 Ml Susp 30 Ml PO HS PRN Fleet Enema Rectal (Sodium Phosphates Rectal) 7-19 Gm/118 Ml Enem 118 Ml RECTAL DAILY PRN Dulcolax Supp (Bisacodyl) 10 Mg Supp 10 Mg RECTAL DAILY IN THE MORNING PRN Magnesium Citrate Liq (Magnesium Citrate) 300 Ml Liq 296 Ml PO DAILY IN THE MORNING PRN Diphenhydramine HCl (Diphenhydramine HCl (Sleep)) 50 Mg Tab 50 Mg PO HS Lotrimin AF Jock Itch Topical (Clotrimazole) 1% Cream 1 Applic TOPICAL BID Flonase Nasal [place] (Fluticasone Nasal [place]) 50 Mcg/Act [place] 1 [place] EACH NARE HS Fosinopril-Hydrochlorothiazide 10-12.5 Mg Tab 1 Tab PO DAILY Vitamin D (Cholecalciferol) 1,000 Unit Tab 1,000 Units PO DAILY Vitamin B-12 (Cyanocobalamin) 1,000 Mcg Subl 1,000 Mcg SL DAILY Zocor (Simvastatin) 20 Mg Tab 20 Mg PO HS Cilostazol 50 Mg Tab 50 Mg PO BID Omeprazole 20 Mg Tab 20 Mg PO DAILY Active Ordered Medications Current Medications Medications (Trade) Dose Ordered Sig/Robson Route Start Time Stop Time Status Last Admin (08/05 NS 1000 ml Inj) 1,000 ml @ 75 mls/hr [id number] IV 11/26/16 14:00 11/27/16 03:22 (NS Flush) 2 ml UNSCH PRN IV FLUSH 11/26/16 14:00 (NS Flush) 2 ml BID IV FLUSH 11/26/16 21:00 11/26/16 21:38 (Zofran Inj) 4 mg Q6H PRN IVP 11/26/16 14:00 Naloxone HCl 0.4 mg 0.4 mg UNSCH PRN IV 11/26/16 14:00 (Vancomycin Consult Pharmacy) 0 ml @ 0 mls/hr UNSCH OTHER 11/26/16 14:00 (Heparin Inj) 5,000 units Q12HR SQ 11/26/16 21:00 11/27/16 09:05 (Lotrisone Cream) 1 applic Q12HR TOPICAL 11/26/16 14:15 11/27/16 09:06 (Ecotrin Ec) 81 mg DAILY PO 11/27/16 09:00 11/27/16 09:04 (Vitamin D3) 1,000 units DAILY PO 11/27/16 09:00 11/27/16 09:05 (Pletal) 50 mg BID PO 11/26/16 21:00 11/27/16 09:05 (Vitamin B12) 1,000 mcg DAILY PO 11/27/16 09:00 11/27/16 09:05 (Vistaril) 50 mg Q8H PRN PO 11/26/16 14:15 11/26/16 14:55 (Claritin) 10 mg DAILY PO 11/27/16 09:00 11/27/16 09:05 (Protonix) 20 mg DAILY PO 11/27/16 09:00 11/27/16 09:04 (Pravachol) 40 mg HS PO 11/26/16 21:00 11/26/16 21:27 Fluticasone Propionate 1 spray 1 spray BID NASAL 11/26/16 21:00 11/27/16 09:05 (Zosyn 3.375 Gm Premix) 50 ml @ 100 mls/hr Q6H IV 11/26/16 20:00 11/27/16 09:11 (Prinivil) 10 mg DAILY PO 11/27/16 09:00 11/27/16 09:05 Hydrochlorothiazide 12.5 mg 12.5 mg DAILY PO 11/27/16 09:00 11/27/16 09:04 (Vancomycin Inj/ NS 500 ml Inj) 515 ml @ 250 mls/hr Q24H IV 11/27/16 06:00 11/27/16 06:06 Miscellaneous Information SPECIFIC LAB TO BE DRAWN:VANCOMYCIN TROUGH DATE TO... ONCE ONCE .XX 11/29/16 05:45 11/29/16 05:46 Family History reviewed and NC to current ID problem Social History Reviewed. No alcohol no smoking per patient. Physical Exam Vital Signs Vital Signs Date Time Temp Pulse Resp B/P Pulse Ox O2 Delivery O2 Flow Rate FiO2 11/27/16 08:00 97.5 77 16 108/64 95 11/27/16 00:00 97.8 74 18 101/55 97 11/26/16 20:00 97.5 76 16 113/59 98 11/26/16 16:20 74 16 104/57 97 Room Air 11/26/16 12:01 98.3 87 16 137/83 98 Room Air 11/26/16 11:55 86 14 11/26/16 11:27 97.8 85 16 109/68 96 Physical Exam GENERAL: This is a well-nourished, well-developed patient, in no apparent distress. SKIN: No rashes, ecchymoses or lesions. Cool and dry. HEAD: Atraumatic. Normocephalic. No temporal or scalp tenderness. EYES: Pupils equal round and reactive. Extraocular motions intact. No scleral icterus. No injection or drainage. ENT: Nose without bleeding, purulent drainage or septal hematoma. Throat without erythema, tonsillar hypertrophy or exudate. Uvula midline. Airway patent. NECK: Trachea midline. Supple, nontender, no meningeal signs. CARDIOVASCULAR: Regular rate and rhythm without murmurs, gallops, or rubs. RESPIRATORY: Clear to auscultation. Breath sounds equal bilaterally. No wheezes , rales, or rhonchi. GASTROINTESTINAL: Abdomen soft, non-tender, nondistended. MUSCULOSKELETAL: Left foot with plantar erythema,induration (cellulitis) ( appears to have improved remarkably based on markings on admission). No fluctuance noted. No tenderness. NEUROLOGICAL: Awake and alert. Right side UE and LE deficit residual. Psych: cooperative IV line sites with no e.o infection. Laboratory Laboratory Tests Test 11/26/16 12:05 White Blood Count 9.6 Red Blood Count 4.92 Hemoglobin 14.4 Hematocrit 42.2 Mean Corpuscular Volume 85.8 Mean Corpuscular Hemoglobin 29.4 Mean Corpuscular Hemoglobin 34.2 Concent Red Cell Distribution Width 13.7 Platelet Count 291 Mean Platelet Volume 7.9 Neutrophils (%) (Auto) 73.3 Lymphocytes (%) (Auto) 16.0 Monocytes (%) (Auto) 7.3 Eosinophils (%) (Auto) 2.0 Basophils (%) (Auto) 1.4 Neutrophils # (Auto) 7.0 Lymphocytes # (Auto) 1.5 Monocytes # (Auto) 0.7 Eosinophils # (Auto) 0.2 Basophils # (Auto) 0.1 CBC Comment DIFF FINAL Differential Comment Erythrocyte Sedimentation Rate 25 Sodium Level 138 Potassium Level 4.3 Chloride Level 103 Carbon Dioxide Level 26.0 Anion Gap 9 Blood Urea Nitrogen 38 Creatinine 1.53 Estimat Glomerular Filtration 44 Rate Random Glucose 114 Lactic Acid Level 1.5 Calcium Level 9.6 Total Bilirubin 0.4 Aspartate Amino Transf 16 (AST/SGOT) Alanine Aminotransferase 22 (ALT/SGPT) Alkaline Phosphatase 67 C-Reactive Protein 1.60 Total Protein 7.7 Albumin 3.4 Date/Time Procedure Status Source Growth 11/26/16 12:20 Gram Stain - Final Resulted Wound Foot 11/26/16 12:20 Wound Culture Resulted Wound Foot Pending 11/26/16 12:20 Aerobic Blood Culture Received Blood Peripheral Pending 11/26/16 12:20 Anaerobic Blood Culture Received Blood Peripheral Pending Result Diagram: 11/26/16 1205 11/26/16 1205 Imaging Last Impressions Foot MRI 11/26/16 0000 Signed Impressions: Service Date/Time: Saturday, November 26, 2016 19:25 - CONCLUSION: No evidence for osteomyelitis. Diffuse cellulitic changes. Ceasar Castle MD Assessment and Plan Assessment and Plan Left foot cellulitis. MRI no abscess, FB or osteomyelitis. Anaerobic gram positive in foot culture which was superficial. Recent stroke with Right side deficit HTN Recs: Dc Zosyn IV Start Augmentin oral DC Vanco IV Follow clinically. larry Burns: he will see pt in am of 11/28/16 and provide recommendations. thai/marlena Wheeler RN and patient. Nancy Manley MD Nov 27, 2016 10:19
[2016-11-27 12:00] VITALS: BP 104/59; PULSE 76; RESP 16; TEMP 97.4; O2SAT 94
[2016-11-27 13:16] LABS: AUTOMATED NEUTROPHIL # 4.7 TH/MM3 (1.8-7.7); BASOPHIL # 0.1 TH/MM3 (0-0.2); BASOPHIL % 1.9 % (0.0-2.0); EOSINOPHIL # 0.4 TH/MM3 (0-0.4); EOSINOPHIL % 5.9 % (0.0-4.0); HEMATOCRIT 34.8 % (39.0-51.0); HEMO FLAGS DIFF FINAL; LYMPH % 21.1 % (9.0-44.0); LYMPHOCYTE # 1.6 TH/MM3 (1.0-4.8); MEAN CELL VOLUME 85.6 FL (80.0-100.0); MEAN CORPUSCULAR HGB CONC 33.9 % (32.0-36.0); MONO % 7.2 % (0.0-8.0); NEUT % 63.9 % (16.0-70.0); PLATELET COUNT 253 TH/MM3 (150-450); RED BLOOD COUNT 4.07 MIL/MM3 (4.50-5.90); WHITE BLOOD COUNT 7.4 TH/MM3 (4.0-11.0)
[2016-11-27 13:36] LABS: BICARBONATE 24.9 MEQ/L (21.0-32.0)
[2016-11-27 16:00] VITALS: BP 99/60; PULSE 85; RESP 16; TEMP 96.9; O2SAT 93
[2016-11-27] MEDS: AMOXICILLIN/CLAVULANATE K 875 MG TAB PO SCH (19:58)
[2016-11-27] MEDS: PRAVASTATIN SOD 40 MG TAB PO SCH (19:58)
[2016-11-27 20:00] VITALS: BP 101/58; PULSE 75; RESP 18; TEMP 97.3; O2SAT 95
[2016-11-28] VITALS: BP 123/61; PULSE 70; RESP 18; TEMP 98.5; O2SAT 98
[2016-11-28] MEDS: SODIUM CHLOR 0.45% 1000 ML INJ 1,000 ML IV SCH (05:10)
[2016-11-28 08:00] VITALS: BP 120/68; PULSE 78; RESP 19; TEMP 97.4; O2SAT 95
[2016-11-28] MEDS: BETAMETHASONE/CLOTRIMAZOLE CREAM 15 GM TOPICAL SCH (09:00)
[2016-11-28] MEDS: FLUTICASONE PROPIONATE 50 MCG/ACT 16 GM NASAL SPRAY NASAL SCH (09:00)
--- NOTE | 2016-11-28 09:10 | HHI.FF ---
Face to Face Verification Diagnosis: (1) Cellulitis of left foot (2) CVA (cerebral vascular accident) (3) Chronic kidney disease (CKD) (4) Hypertension Physical Therapy Order: Evaluate and Treat, Improve ambulation, Strength and gait training Home Health Nursing Order: Medical education Signs/symptoms of disease process Medication education-adverse effect I have seen patient Pelon Oakes on 11/28/16. My clinical findings support the need for the requested home health care services because: Deconditioned w/ increased weakness High risk of falls I certify that my clinical findings support that this patient is homebound because: Unsteady gait/balance Angela Walton MD Nov 28, 2016 09:10
[2016-11-28] MEDS ORDERED: LOTR15T TOPICAL (09:14)
[2016-11-28] MEDS ORDERED: FOSI10TA PO (09:14)
--- NOTE | 2016-11-28 09:16 | HHI.DS ---
Discharge Summary Admission Date Nov 26, 2016 at 13:53 Discharge Date: Nov 28, 2016 Admitting Diagnosis Left Foot Abscess (1) Cellulitis of left foot ICD Code: L03.116 Diagnosis: Principal (2) Chronic kidney disease (CKD) ICD Code: N18.9 Diagnosis: Secondary (3) CVA (cerebral vascular accident) ICD Code: I63.9 Diagnosis: Secondary (4) Hypertension ICD Code: I10 Diagnosis: Secondary Procedures See hospital course. 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 Patient stated after discharge from the hospital he went to rehabilitation center but later could not walk on his left foot secondary to pain. He stated that he was evaluated by a physician once and a physician executive personal assistant later on during his course there and was given antibiotics which was clindamycin. Patient stated the medication did not work so he was discharged. Patient stated after discharge he saw a air conditioning unit tester and fainted so presented to emergency department in which she was discharged in order to see a air conditioning unit tester today. The air conditioning unit tester sent patient to the emergency department today to be started on vancomycin, Zosyn, and obtain MRI of the left foot to rule out an abscess. Cnc Lathe Machine Operator also requested PERLA, sedimentation rate, CRP, and CBC. Patient stated that before his stroke he thinks he had a piece of wood in his foot and most likely that got infected. Patient also requested a cream that I gave him during last admission to be using his gluteal area. He stated that he used this during his course in the rehabilitation center and it helped him greatly with the itchiness. Otherwise he has no other complaints. His , daughter are at the bedside. CBC/BMP: 11/27/16 1220 11/27/16 1220 Significant Findings Laboratory Tests Test 11/26/16 11/27/16 12:05 12:20 Neutrophils (%) (Auto) 73.3 % (16.0-70.0) Erythrocyte Sedimentation Rate 25 mm/hr (0-20) Blood Urea Nitrogen 38 MG/DL (7-18) 29 MG/DL (7-18) Creatinine 1.53 MG/DL 1.46 MG/DL (0.60-1.30) (0.60-1.30) Estimat Glomerular Filtration 44 ML/MIN (>89) 46 ML/MIN (>89) Rate Random Glucose 114 MG/DL (74-106) C-Reactive Protein 1.60 MG/DL (0.00-0.30) Red Blood Count 4.07 MIL/MM3 (4.50-5.90) Hemoglobin 11.8 GM/DL (13.0-17.0) Hematocrit 34.8 % (39.0-51.0) Eosinophils (%) (Auto) 5.9 % (0.0-4.0) Chloride Level 109 MEQ/L (98-107) Imaging Last Impressions Foot MRI 11/26/16 0000 Signed Impressions: Service Date/Time: Saturday, November 26, 2016 19:25 - CONCLUSION: No evidence for osteomyelitis. Diffuse cellulitic changes. Ceasar Castle MD PE at Discharge GENERAL: in NAD SKIN: erythema in the gluteal area and fold. HEAD: Normocephalic. EYES: No scleral icterus. No injection or drainage. NECK: Supple, trachea midline. No JVD or lymphadenopathy. CARDIOVASCULAR: Regular rate and rhythm without murmurs, gallops, or rubs. RESPIRATORY: Breath sounds equal bilaterally. No accessory muscle use. GASTROINTESTINAL: Abdomen soft, non-tender, nondistended. Left foot: sole of foot shows improvement of erythema s/p I&D. Pt update on day of discharge Follow-up for cellulitis. Patient stated that he is ambulating with no difficulty. He stated that he did not need any pain medication. Patient remains afebrile. Patient very anxious to go home. Hospital Course 81-year-old male with history of recent infarct of the high left parietal cortex , hypertension and hyperlipidemia who presented with left foot infection Left foot cellulitis -s/p I &D on 11/26 by Cnc Lathe Machine Operator. -Per air conditioning unit tester request to put patient on Zosyn and vancomycin. Infectious disease consulted. Patient improved quickly with Zosyn and vancomycin. Patient transitioned to Augmentin per infectious disease. 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 Acute on chronic renal insufficiency -Baseline GFR 52 with creatinine 1.32. Patient now has a GFR 44 with a creatinine 1.53. Improved to 1.43. -Most likely secondary to dehydration. Patient was given IV fluids with improvement in his creatinine. He has good urine output. -Patient was told to avoid nephrotoxins. Hypertension/hyperlipidemia -continue home medication. Tinea corpora/tinea pedis -continue with betamethasone/clotrimazole cream since this is working for patient. -given a dose of Diflucan X 2 with improvement of symptoms. Pt Condition on Discharge: Good Discharge Disposition: Disch w/ Home Health Serv Discharge Time: <= 30 minutes Discharge Instructions DIET: Follow Instructions for: Heart Healthy Diet Activities you can perform: Regular-No Restrictions Follow up Referrals: PCP Follow-up - 1 Week New Medications: Amoxicillin-Clavulanate (Augmentin) 875-125 mg Tab 875 MG PO BID not for use in CrCl <30 ml/min. Infection #24 Ref 0 TAB Fosinopril (Fosinopril) 10 Mg Tab 10 MG PO DAILY hypertension #30 Ref 0 TAB Continued Medications: Aspirin DR (Aspirin EC) 81 Mg Tabdr 81 MG PO DAILY CVA #30 Ref 0 TAB Betamethasone-Clotrimazole Topical (Lotrisone Topical) 1-0.05% Cream 1 APPLIC TOPICAL Q12HR tinea copora and athletes foot #60 Ref 3 G (This prescription has been renewed) Bisacodyl Supp (Dulcolax Supp) 10 Mg Supp 10 MG RECTAL DAILY IN THE MORNING PRN IF NO BM X 1 DAY FROM MOM #12 Ref 0 SUPP Cholecalciferol (Vitamin D) 1,000 Unit Tab 1000 UNITS PO DAILY Nutritional Supplement #1 Ref 0 BOTTLE Cilostazol (Cilostazol) 50 Mg Tab 50 MG PO BID INTERMITTENT CLAUDICATION Ref 0 TAB Clotrimazole Topical (Lotrimin AF Jock Itch Topical) 1% Cream 1 APPLIC TOPICAL BID FUNGUS Cyanocobalamin (Vitamin B-12) 1,000 Mcg Subl 1000 MCG SL DAILY Nutritional Supplement Ref 0 TAB.SL Diphenhydramine HCl (Sleep) (Diphenhydramine HCl) 50 Mg Tab 50 MG PO HS Insomnia Fluticasone Nasal [place] (Flonase Nasal [place]) 50 Mcg/Act [place] 1 SPRAY EACH NARE HS Allergies #1 Ref 0 BOTTLE Hydroxyzine Pamoate (Hydroxyzine Pamoate) 50 Mg Cap 50 MG PO Q8H PRN ITCHING #15 Ref 0 CAP Loratadine (Claritin) 10 Mg Tab 10 MG PO DAILY itchiness #15 Ref 0 TAB Omeprazole (Omeprazole) 20 Mg Tab 20 MG PO DAILY GERD #30 Ref 0 TAB Simvastatin (Zocor) 20 Mg Tab 20 MG PO HS Cholesterol Management #30 Ref 0 TAB Discontinued Medications: Clindamycin (Clindamycin) 300 Mg Cap 300 MG PO Q6H Infection Days 10 Ref 0 CAP Fosinopril-Hydrochlorothiazide (Fosinopril-Hydrochlorothiazide) 10-12.5 Mg Tab 1 TAB PO DAILY HTN Magnesium Citrate Liq (Magnesium Citrate Liq) 300 Ml Liq 296 ML PO DAILY IN THE MORNING PRN IF NO BM FROM FLEETS Ref 0 BOTTLE Magnesium Hydroxide Liq (Milk of Magnesia Liq) 400 Mg/5 Ml Susp 30 ML PO HS PRN IF NO BM WITHIN 3 DAYS #1 Ref 0 BOTTLE Sodium Phosphates Rectal (Fleet Enema Rectal) 7-19 Gm/118 Ml Enem 118 ML RECTAL DAILY PRN IF NO BM X1 DAY AFTER SUPP Ref 0 BOTTLE Angela Walton MD Nov 28, 2016 09:16
[2016-11-28] MEDS: CHOLECALCIFEROL (VIT D3) 1000 UNIT TAB PO SCH (09:30)
[2016-11-28] MEDS: PANTOPRAZOLE SOD 20 MG DELAYED RELEASE TAB PO SCH (09:30)
[2016-11-28] MEDS: ASPIRIN EC 81 MG TABEC PO SCH (09:30)
[2016-11-28] MEDS: LISINOPRIL 10 MG TAB PO SCH (09:30)
[2016-11-28] MEDS: LORATADINE 10 MG TAB PO SCH (09:30)
[2016-11-28] MEDS: CILOSTAZOL 50 MG TAB PO SCH (09:30)
[2016-11-28] MEDS: HYDROCHLOROTHIAZIDE 25 MG TAB PO SCH (09:30)
[2016-11-28] MEDS: HEPARIN SODIUM - SQ 10,000 UNITS/ML VIAL SQ SCH (09:30)
[2016-11-28] MEDS: AMOXICILLIN/CLAVULANATE K 875 MG TAB PO SCH (09:30)
[2016-11-28] MEDS: CYANOCOBALAMIN 1,000 MCG TAB PO SCH (09:31)
[2016-11-28] MEDS: SODIUM CHLORIDE 0.9% FLUSH 10 ML FLUSH IV FLUSH SCH (09:31)
[2016-11-28 10:18] LABS: BICARBONATE 23.4 MEQ/L (21.0-32.0); POTASSIUM 3.9 MEQ/L (3.5-5.1)
[2016-11-28] MEDS ORDERED: AUGM875T PO (10:36)
--- NOTE | 2016-11-28 20:05 | PD.POD ---
Subjective Podiatric Problems Left foot cellulitis and s/p foreign body removal. Seen at bedside this am in no pain and much improved. Pain scale used: 0-10 numeric scale Pain score: 0 Past Med/Surg/Social History Social History Smoking Status: Former Smoker Objective Vital Signs Vital Signs Date Time Temp Pulse Resp B/P Pulse Ox O2 Delivery O2 Flow Rate FiO2 11/28/16 08:00 97.4 78 19 120/68 95 11/28/16 00:00 98.5 70 18 123/61 98 Coded Allergies: No Known Allergies (Verified , 11/26/16) Other Results Last Impressions Foot MRI 11/26/16 0000 Signed Impressions: Service Date/Time: Saturday, November 26, 2016 19:25 - CONCLUSION: No evidence for osteomyelitis. Diffuse cellulitic changes. Ceasar Castle MD Laboratory Tests Test 11/26/16 11/27/16 11/28/16 12:05 12:20 09:28 Erythrocyte Sedimentation Rate 25 mm/hr Lactic Acid Level 1.5 mmol/L Total Bilirubin 0.4 MG/DL Aspartate Amino Transf 16 U/L (AST/SGOT) Alanine Aminotransferase 22 U/L (ALT/SGPT) Alkaline Phosphatase 67 U/L C-Reactive Protein 1.60 MG/DL Total Protein 7.7 GM/DL Albumin 3.4 GM/DL White Blood Count 7.4 TH/MM3 Red Blood Count 4.07 MIL/MM3 Hemoglobin 11.8 GM/DL Hematocrit 34.8 % Mean Corpuscular Volume 85.6 FL Mean Corpuscular Hemoglobin 29.0 PG Mean Corpuscular Hemoglobin 33.9 % Concent Red Cell Distribution Width 14.0 % Platelet Count 253 TH/MM3 Mean Platelet Volume 7.8 FL Neutrophils (%) (Auto) 63.9 % Lymphocytes (%) (Auto) 21.1 % Monocytes (%) (Auto) 7.2 % Eosinophils (%) (Auto) 5.9 % Basophils (%) (Auto) 1.9 % Neutrophils # (Auto) 4.7 TH/MM3 Lymphocytes # (Auto) 1.6 TH/MM3 Monocytes # (Auto) 0.5 TH/MM3 Eosinophils # (Auto) 0.4 TH/MM3 Basophils # (Auto) 0.1 TH/MM3 CBC Comment DIFF FINAL Differential Comment Sodium Level 140 MEQ/L Potassium Level 3.9 MEQ/L Chloride Level 110 MEQ/L Carbon Dioxide Level 23.4 MEQ/L Anion Gap 7 MEQ/L Blood Urea Nitrogen 26 MG/DL Creatinine 1.42 MG/DL Estimat Glomerular Filtration 48 ML/MIN Rate Random Glucose 131 MG/DL Calcium Level 9.1 MG/DL Exam-Podiatry Dermatological Exam Ulcers: Location/Measurements LLE 90% resolved cellulitis. No drainage and no pop. No crepitus. Muscle strength DP and PT intact. Assessment & Plan Diagnosis: (1) Foot abscess, left Status: Acute (2) Cellulitis of left foot Status: Acute A/P Significant improvement LLE. OK to d/c per Podiatry f/u with in 1 week of d/c with Dr Skinner. Tosin Skinner DPM Nov 28, 2016 20:05
[2016-11-29] MEDS ORDERED: PHARMACY ORDERED LAB ONE (05:45)
== END 2016-11-28 12:34 | disposition home health service (06) | DRG 603 ==
LOC: NEPC 11:26 → NEDA 13:53 → N07A 20:26
PROVIDERS: ADMIT Family Medicine; ATTEND Family Medicine
DX: L03.116 Cellulitis of left lower limb (principal); E86.0 Dehydration; R55 Syncope and collapse; B96.89 Other specified bacterial agents as the cause of diseases classified elsewhere; I12.9 Hypertensive chronic kidney disease with stage 1 through stage 4 chronic kidney disease, or unspecified chronic kidney disease; N18.9 Chronic kidney disease, unspecified; E78.5 Hyperlipidemia, unspecified; B35.3 Tinea pedis; B35.4 Tinea corporis; Z86.73 Personal history of transient ischemic attack (TIA), and cerebral infarction without residual deficits; R94.31 Abnormal electrocardiogram [ECG] [EKG]; R05 Cough; Z72.0 Tobacco use
CPT/HCPCS: 10060; 71010; 73630; 73720; 80048; 80053; 83605; 83735; 84484; 85025; 85652; 86140; 87040; 87070; 87185; 87205; 93005; 93922; 96361; 96365; 96374; 96375; A9579; J1644; J2543; J3370; J7030; J7040; J7050